=== PATIENT | male | born 1935 | race Caucasian/White ===

== ENCOUNTER 2016-09-23 16:16 | Inpatient (IN) | payer MEDICARE, OTHER ==
[~2016-09-23] VITALS: Ht 170.2 cm; Wt 82.2 kg
[~2016-09-23 16:16] MED LIST: ALPH0.1S EACH EYE; AMLO5TAB2 PO; ASPI-110 PO; CARV12.52 PO; CILO50TA PO; HUMALOG SQ; HYDR25TA35 PO; ISOS60TA PO; LANTINJ SQ; LISI10TA3 PO; SERT-129 PO; TRAV0.00 EACH EYE; VYTO10TA9 PO
[2016-09-23 16:20] VITALS: BP 100/53; PULSE 71; RESP 18; TEMP 97.8; O2SAT 97
[2016-09-23] MEDS ORDERED: CHOL20005 PO (16:38)
[2016-09-23] MEDS ORDERED: FERR325T PO (16:38)
[2016-09-23] MEDS ORDERED: SODIUM CHLOR 0.9% 1000 ML INJ 1,000 ML IV SCH (16:44)
[2016-09-23] MEDS ORDERED: MORPHINE SULFATE 4 MG/ML INJ IV PUSH ONE (16:45)
[2016-09-23] MEDS ORDERED: SODIUM CHLORIDE 0.9% FLUSH 10 ML FLUSH IV FLUSH PRN ×2 (16:45→18:45)
[2016-09-23] MEDS ORDERED: ONDANSETRON HCL 4 MG/2 ML VIAL IVP ONE (16:45)
[2016-09-23 16:53] VITALS: O2SAT 97
--- NOTE | 2016-09-23 16:53 | PD ---
HPI Chief Complaint: Abdominal Pain Time Seen by Provider: 16:25 Travel History International Travel<30 days: No Contact w/Intl Traveler<30days: No Traveled to known affect area: No History of Present Illness HPI The patient is a 80-year-old male who presents emergency department from his physician's office, Dr. Salas, for evaluation of abdominal pain. The patient notes a one-week history of intermittent right upper quadrant abdominal pain that is worse with eating, the patient states when he eats he feels like he has to bend over to alleviate the pain. The pain is located in the right upper quadrant and radiates to the back. He does complain of mild nausea with a few episodes of vomiting. He denies any lower abdominal pain, has a history of previous appendectomy. The patient also has a history of diverticulitis with different symptoms. The patient denies any history of pancreatitis, nephrolithiasis, or current dysuria, frequency, or urgency. He denies any associated fever. The patient's last meal was at 2:45 PM, one half of a sandwich. PFSH Past Medical History Hx Anticoagulant Therapy: Yes Anemia: Yes Arthritis: Yes Asthma: No Autoimmune Disease: No Blood Disorders: No Anxiety: No Depression: No Cancer: No Cardiac Catheterization: Yes Cardiovascular Problems: Yes High Cholesterol: Yes Chest Pain: Yes Congestive Heart Failure: No COPD: No Cerebrovascular Accident: No Coronary Artery Disease: Yes Diabetes: Yes Patient Takes Glucophage: No Diminished Hearing: Yes (SLIGHT HEARING DEFICIT) Endocrine: Yes Gastrointestinal Disorders: No GERD: No Glaucoma: No Genitourinary: Yes Hepatitis: No Hiatal Hernia: No Hypertension: Yes Immune Disorder: No Kidney Stones: Yes Musculoskeletal: Yes Neurologic: No Psychiatric: No Reproductive: No Respiratory: No Myocardial Infarction: No Renal Failure: Yes Sleep Apnea: No Thyroid Disease: No Ulcer: No Tetanus Vaccination: > 5 Years Influenza Vaccination: Yes PNEUMOCCOCAL Vaccine (Year): 1 Past Surgical History Abdominal Surgery: Yes (BURST APPENDIX 1982) Appendectomy: Yes Cardiac Surgery: Yes (HEART CATH 2007) Cholecystectomy: No Eye Surgery: Yes (CATARACTS AJAY EYES LENS IMPLANTS) Joint Replacement: Yes (TOTAL LT KNEE 2003) Oral Surgery: Yes (JAW SURGERY WITH IMPLANT) Thoracic Surgery: No Tonsillectomy: Yes Other Surgery: Yes (APPENDECTOMY, EYE SURGERY, JAW W/ IMPLANT,TONSILECTOMY, L KNEE REPLACEMENT.) Social History Alcohol Use: No Tobacco Use: No Substance Use: No Allergies-Medications (Allergen,Severity, Reaction): Coded Allergies: Cipro (Verified Allergy, Unknown, 09/23/16) Reported Meds & Prescriptions Reported Meds & Active Scripts Active Reported D3 Super Strength (Cholecalciferol) 2,000 Unit Cap 2,000 Units PO DAILY Ferrous Sulfate 325 Mg Tab 325 Mg PO DAILY Humalog Inj (Insulin Human Lispro) 1,000 Unit/10 Ml Vial SQ PER SLIDING SCALE Lantus Solostar Pen Inj (Insulin Glargine) 300 Unit/3 Ml Pen 50 Units SQ HS Travatan Z Opth Drops (Travoprost) 0.004 % Soln 1 Drop EACH EYE BID Alphagan P Opth Drops (Brimonidine Tartrate) 0.1% Soln 1 Drop EACH EYE BID Amlodipine (Amlodipine Besylate) 5 Mg Tab 5 Mg PO DAILY MEDICATION CURRENTLY ON HOLD Sertraline (Sertraline HCl) 100 Mg Tab 100 Mg PO DAILY Cilostazol 50 Mg Tab 50 Mg PO BID Hydralazine (Hydralazine HCl) 25 Mg Tab 25 Mg PO BID Take with a meal Isosorbide Mononitrate ER (Isosorbide Mononitrate) 60 Mg Tab 60 Mg PO DAILY Carvedilol 12.5 Mg Tab 12.5 Mg PO BID Vytorin (Ezetimibe-Simvastatin) 10-40 Mg Tab 1 Tab PO HS Lisinopril 10 Mg Tab 10 Mg PO DAILY Review of Systems Except as stated in HPI: all other systems reviewed are Neg General / Constitutional: No: Fever Cardiovascular: No: Chest Pain or Discomfort Respiratory: No: Shortness of Breath Gastrointestinal: Positive: Nausea, Vomiting, Abdominal Pain, Other (last bowel movement, normal, today), No: Diarrhea, Constipation, Changes in Bowel Habits Genitourinary: No: Dysuria, Hematuria Skin: No Rash Physical Exam Narrative GENERAL: Awake, alert, pleasant 80-year-old male who appears his stated age and is in no acute respiratory distress. SKIN: Focused skin assessment warm/dry. HEAD: Atraumatic. Normocephalic. EYES: No injection or drainage. ENT: No nasal bleeding or discharge. Mucous membranes pink and moist. NECK: Trachea midline. No JVD. CARDIOVASCULAR: Regular rate and rhythm. No murmur appreciated. RESPIRATORY: No accessory muscle use. Clear to auscultation. Breath sounds equal bilaterally. GASTROINTESTINAL: Abdomen soft, tender palpation right upper quadrant. Well- healed scar just lateral, to the right, of the midline in the right lower abdomen. No rebound tenderness, guarding, or rigidity. MUSCULOSKELETAL: No obvious deformities. No clubbing. No cyanosis. No edema. NEUROLOGICAL: Awake and alert. No obvious cranial nerve deficits. Motor grossly within normal limits. Normal speech. PSYCHIATRIC: Appropriate mood and affect; insight and judgment normal. Data Data Last Documented VS Vital Signs Date Time Temp Pulse Resp B/P Pulse Ox O2 Delivery O2 Flow Rate FiO2 09/23/16 16:53 97 Room Air 09/23/16 16:20 97.8 71 18 100/53 Orders Complete Blood Count With Diff (09/23/16 16:44) Comprehensive Metabolic Panel (09/23/16 16:44) Lipase (09/23/16 16:44) Us Abdomen Gallbladder (09/23/16 ) Iv Access Insert/Monitor (09/23/16 16:44) Ecg Monitoring (09/23/16 16:44) Oximetry (09/23/16 16:44) Morphine Inj (Morphine Inj) (09/23/16 16:45) Ondansetron Inj (Zofran Inj) (09/23/16 16:45) Sodium Chlor 0.9% 1000 Ml Inj (Ns 1000 M (09/23/16 16:44) Sodium Chloride 0.9% Flush (Ns Flush) (09/23/16 16:45) Potassium, Serum (K) (09/23/16 17:23) Electrocardiogram (09/23/16 ) Sodium Chlor 0.9% 1000 Ml Inj (Ns 1000 M (09/23/16 17:45) Potassium, Serum (K) (09/23/16 21:09) Insulin Human Regular Inj (Novolin R Inj (09/23/16 18:15) Dextrose 50% In Twin (Vial) Inj (D50w (Vi (09/23/16 18:15) Sodium Bicarbonate 8.4% Inj (Sodium Bica (09/23/16 18:15) Sodium Polysty Sulfate Liq (Kayexalate L (09/23/16 18:15) Admit Order (Ed Use Only) (09/23/16 18:23) Labs Laboratory Tests Test 09/23/16 09/23/16 16:50 17:30 White Blood Count 11.9 TH/MM3 Red Blood Count 3.55 MIL/MM3 Hemoglobin 9.9 GM/DL Hematocrit 29.6 % Mean Corpuscular Volume 83.3 FL Mean Corpuscular Hemoglobin 28.0 PG Mean Corpuscular Hemoglobin 33.5 % Concent Red Cell Distribution Width 14.1 % Platelet Count 86 TH/MM3 Mean Platelet Volume 9.7 FL Neutrophils (%) (Auto) 56.2 % Lymphocytes (%) (Auto) 30.1 % Monocytes (%) (Auto) 11.1 % Eosinophils (%) (Auto) 2.3 % Basophils (%) (Auto) 0.3 % Neutrophils # (Auto) 6.7 TH/MM3 Lymphocytes # (Auto) 3.6 TH/MM3 Monocytes # (Auto) 1.3 TH/MM3 Eosinophils # (Auto) 0.3 TH/MM3 Basophils # (Auto) 0.0 TH/MM3 CBC Comment AUTO DIFF Differential Comment AUTO DIFF CONFIRMED Sodium Level 135 MEQ/L Potassium Level 6.5 MEQ/L 6.7 MEQ/L Chloride Level 103 MEQ/L Carbon Dioxide Level 26.8 MEQ/L Anion Gap 5 MEQ/L Blood Urea Nitrogen 55 MG/DL Creatinine 2.80 MG/DL Estimat Glomerular Filtration 22 ML/MIN Rate Random Glucose 143 MG/DL Calcium Level 8.6 MG/DL Total Bilirubin 0.3 MG/DL Aspartate Amino Transf 19 U/L (AST/SGOT) Alanine Aminotransferase 30 U/L (ALT/SGPT) Alkaline Phosphatase 58 U/L Total Protein 6.7 GM/DL Albumin 3.4 GM/DL Lipase 89 U/L [facility] Medical Decision Making Medical Screen Exam Complete: Yes Emergency Medical Condition: Yes Medical Record Reviewed: Yes Interpretation(s) EKG reveals sinus bradycardia with borderline first-degree AV block. Laboratory Tests Test 09/23/16 09/23/16 16:50 17:30 White Blood Count 11.9 TH/MM3 Red Blood Count 3.55 MIL/MM3 Hemoglobin 9.9 GM/DL Hematocrit 29.6 % Mean Corpuscular Volume 83.3 FL Mean Corpuscular Hemoglobin 28.0 PG Mean Corpuscular Hemoglobin 33.5 % Concent Red Cell Distribution Width 14.1 % Platelet Count 86 TH/MM3 Mean Platelet Volume 9.7 FL Neutrophils (%) (Auto) 56.2 % Lymphocytes (%) (Auto) 30.1 % Monocytes (%) (Auto) 11.1 % Eosinophils (%) (Auto) 2.3 % Basophils (%) (Auto) 0.3 % Neutrophils # (Auto) 6.7 TH/MM3 Lymphocytes # (Auto) 3.6 TH/MM3 Monocytes # (Auto) 1.3 TH/MM3 Eosinophils # (Auto) 0.3 TH/MM3 Basophils # (Auto) 0.0 TH/MM3 CBC Comment AUTO DIFF Differential Comment AUTO DIFF CONFIRMED Sodium Level 135 MEQ/L Potassium Level 6.5 MEQ/L 6.7 MEQ/L Chloride Level 103 MEQ/L Carbon Dioxide Level 26.8 MEQ/L Anion Gap 5 MEQ/L Blood Urea Nitrogen 55 MG/DL Creatinine 2.80 MG/DL Estimat Glomerular Filtration 22 ML/MIN Rate Random Glucose 143 MG/DL Calcium Level 8.6 MG/DL Total Bilirubin 0.3 MG/DL Aspartate Amino Transf 19 U/L (AST/SGOT) Alanine Aminotransferase 30 U/L (ALT/SGPT) Alkaline Phosphatase 58 U/L Total Protein 6.7 GM/DL Albumin 3.4 GM/DL Lipase 89 U/L Ultrasound the gallbladder reveals echogenic liver compatible with fatty infiltration or hepatocellular disease. No evidence of cholelithiasis. Differential Diagnosis Differential diagnosis includes cholecystitis, choledocholithiasis, biliary colic, pancreatitis, nephrolithiasis, pyelonephritis, colitis, diverticulitis, lower lobe pneumonia. Narrative Course IV was established, labs are drawn and sent, and the patient was placed on cardiac telemetry monitoring and continuous pulse oximetry monitoring. The patient was administered morphine, Zofran, and IV fluids. Ultrasound of the right upper quadrant was ordered to evaluate for possible cholecystitis. The patient's white count was mildly elevated, hemoglobin was mildly low at 9.9. Creatinine was elevated at 2.8, I reviewed the EMR, is baseline appears to be 2.4. The patient's potassium was 6.5, no mention of hemolysis. Therefore, repeat potassium level was sent to lab and the patient was administered 1 L of normal saline. EKG was also ordered, no obvious PT waves or dissociation. Repeat potassium was 6.7. No mention of hemolysis. Therefore, the patient was administered insulin, D50, bicarbonate, and Kayexalate. The patient does have a previous history of hyperkalemia, is followed by his web developer programmer, Dr. Johsnon. The patient has an appointment next month. The patient also takes lisinopril for renal protective properties, may be contributing with the nausea/ vomiting/dehydration to the hyperkalemia. Therefore, patient will be admitted for cardiac telemetry monitoring and reevaluation of the potassium in the morning. Physician Communication Physician Communication The medical group/hospitalist that covers for his primary physician was paged for admission. Diagnosis Primary Impression: Hyperkalemia Additional Impressions: Chronic renal insufficiency Qualified Code: N18.4 - Chronic renal insufficiency, stage 4 (severe) Abdominal pain Qualified Code: R10.11 - Right upper quadrant abdominal pain Admitting Information Admitting Physician Requests: Admit Condition: Stable Zack Troncoso MD September 23, 2016 16:53
[2016-09-23 16:57] LABS: AUTOMATED NEUTROPHIL # 6.7 TH/MM3 (1.8-7.7); BASOPHIL % 0.3 % (0.0-2.0); EOSINOPHIL # 0.3 TH/MM3 (0-0.4); EOSINOPHIL % 2.3 % (0.0-4.0); HEMATOCRIT 29.6 % (39.0-51.0); LYMPH % 30.1 % (9.0-44.0); LYMPHOCYTE # 3.6 TH/MM3 (1.0-4.8); MEAN CELL VOLUME 83.3 FL (80.0-100.0); MEAN CORPUSCULAR HGB CONC 33.5 % (32.0-36.0); MONO % 11.1 % (0.0-8.0); NEUT % 56.2 % (16.0-70.0); PLATELET COUNT 86 TH/MM3 (150-450); RED BLOOD COUNT 3.55 MIL/MM3 (4.50-5.90); RED CELL DISTRIBUTION WIDTH 14.1 % (11.6-17.2); WHITE BLOOD COUNT 11.9 TH/MM3 (4.0-11.0)
[2016-09-23 16:59] LABS: HEMO FLAGS AUTO DIFF
[2016-09-23 17:22] LABS: CHLORIDE 103 MEQ/L (98-107); POTASSIUM 6.5 MEQ/L (3.5-5.1); SODIUM (NA) 135 MEQ/L (136-145)
[2016-09-23 17:26] LABS: ANION GAP 5 MEQ/L (5-15); BICARBONATE 26.8 MEQ/L (21.0-32.0); BLOOD UREA NITROGEN 55 MG/DL (7-18)
[2016-09-23 17:29] LABS: ALT (GPT) 30 U/L (12-78); AST (GOT) 19 U/L (15-37); GLOMERULAR FILTRATION RATE 22 ML/MIN (>89); SCAN/DIFF AUTO DIFF CONFIRMED
[2016-09-23 17:30] LABS: TOTAL BILIRUBIN ADULT 0.3 MG/DL (0.2-1.0)
[2016-09-23 17:31] LABS: ALKALINE PHOSPHATASE 58 U/L (45-117)
[2016-09-23] MEDS ORDERED: SODIUM CHLOR 0.9% 1000 ML INJ 1,000 ML IV ONE (17:45)
[2016-09-23] MEDS ORDERED: DEXTROSE 50% IN WATER 50 ML VIAL(D50) IV PUSH ONE (18:15)
[2016-09-23] MEDS ORDERED: SODIUM BICARBONATE 8.4% SOLN 50 MEQ/50 ML VIAL SLOW IVP ONE (18:15)
[2016-09-23] MEDS ORDERED: INSULIN HUMAN REGULAR 1,000 UNITS/10 ML VIAL IV PUSH ONE (18:15)
[2016-09-23] MEDS ORDERED: SODIUM POLYSTYRENE SULFONATE SUSP 15 GM/60 ML CUP PO ONE (18:15)
--- NOTE | 2016-09-23 18:23 | RADHPO ---
EXAM DATE/TIME: 09/23/2016 17:41 [facility] COMPARISON: No previous studies available for comparison. INDICATIONS : Right upper quadrant pain. MEDICAL HISTORY : Hypercholesterolemia. Hypertension. Arthritis. CAD. Chest pain. Renal disease a nd failure. Renal calculi. Diabetes. Anemia. Erecticle dysfunction. Dizziness. Numbness. Ringing in l eft ear. Anticoagulant therapy. SURGICAL HISTORY : Tonsillectomy. Appendectomy. Total knee replacement, left. Bilateral cataracts with lens implants. Jaw surgery with implant. Cardiac cath. ENCOUNTER: Initial ACUITY: 4-6 days PAIN SCORE: 5/10 LOCATION: Right upper quadrant MEASUREMENTS: LIVER: 14.6 cm length COMMON DUCT: 4 mm RIGHT KIDNEY: 8.3 x 5.3 x 5.9 cm FINDINGS: Ultrasound of the upper abdomen demonstrates increased echogenicity of the liver compatible with fatt y infiltration or hepatocellular disease. The pancreas is not visualized secondary to overlying bowel gas. The gallbladder is normal without wall thickening or pericholecystic fluid. There is cortical t hinning of the right kidney characteristic of medical renal disease. CONCLUSION: Echogenic liver compatible with fatty infiltration or hepatocellular disease. No evidence of cholelit hiasis Tyler Bynum MD on September 23, 2016 at 18:19 Board Certified Radiologist. This report was verified electronically.
[2016-09-23] MEDS ORDERED: ACETAMINOPHEN 325 MG TAB PO PRN (18:45)
[2016-09-23] MEDS ORDERED: NALOXONE HCL 0.4 MG/ML AMP IV PRN (18:45)
[2016-09-23] MEDS ORDERED: ONDANSETRON HCL 4 MG/2 ML VIAL IVP PRN (18:45)
[2016-09-23 19:15] VITALS: BP 127/56; PULSE 58; RESP 20; O2SAT 98
[2016-09-23] MEDS ORDERED: DIATRIZOATE MEGLUM/DIATRIZOATE SOD 9 ML CUP ONE (19:18)
[2016-09-23] MEDS ORDERED: DIATRIZOATE MEGLUM/DIATRIZOATE SOD 9 ML CUP PO ONE (19:30)
[2016-09-23] MEDS ORDERED: CILOSTAZOL 50 MG TAB PO SCH (21:00)
[2016-09-23] MEDS ORDERED: NON-FORMULARY DRUG (Ezetimibe-Simvastatin (Vytorin) 1 TAB) PO SCH (21:00)
[2016-09-23] MEDS: SODIUM CHLORIDE 0.9% FLUSH 10 ML FLUSH IV FLUSH SCH (21:00)
[2016-09-23 21:26] VITALS: BP 142/74
[2016-09-23 21:29] VITALS: PULSE 65
--- NOTE | 2016-09-23 21:55 | RADHPO ---
EXAM DATE/TIME: 09/23/2016 20:47 [facility] COMPARISON: No previous studies available for comparison. INDICATIONS : Abdominal pain. ORAL CONTRAST: Prescribed oral contrast ingested. RADIATION DOSE: 19.43 CTDIvol (mGy) MEDICAL HISTORY : Hypertension. Renal calculi. Renal failure, chronic.L1 fracture. SURGICAL HISTORY : Appendectomy. ENCOUNTER: Initial ACUITY: 1 day PAIN SCALE: 8/10 LOCATION: Right upper quadrant abdomen TECHNIQUE: Volumetric scanning of the abdomen and pelvis was performed. Using automated exposure control and ad justment of the mA and/or kV according to patient size, radiation dose was kept as low as reasonably achievable to obtain optimal diagnostic quality images. FINDINGS: There is subsegmental atelectasis in the both bases. The liver and spleen are normal in size and no focal defects are identified. There are multiple stones within the gallbladder without wall thickenin g or pericholecystic fluid the largest measuring 4 mm. The pancreas demonstrates no evidence of mass and there is no dilatation of the pancreatic duct. The adrenal glands and kidneys appear normal bilat erally. No hydronephrosis or mass lesions are identified. A shunt catheter enters the right upper christelle drant. Examination of the pelvis demonstrates no evidence of free fluid or pelvic mass. No abnormally enlarg ed inguinal or retroperitoneal lymph nodes are present. The bladder is unremarkable with the exceptio n of a small diverticulum measuring 1 cm on the left. There is diverticulosis without evidence of div erticulitis. CONCLUSION: 1. No evidence of acute abdominal or pelvic process. No masses are identified. 2. Diverticulosis without evidence of diverticulitis. 3. Cholelithiasis Tyler Bynum MD on September 23, 2016 at 21:50 Board Certified Radiologist. This report was verified electronically.
[2016-09-23 22:00] VITALS: BP 145/61; PULSE 64; RESP 16; TEMP 97.5; O2SAT 96
[2016-09-23] MEDS ORDERED: PILL SPLITTER OTHER PRN (22:00)
[2016-09-23 22:03] LABS: BICARBONATE 28.8 MEQ/L (21.0-32.0); POTASSIUM 4.7 MEQ/L (3.5-5.1)
[2016-09-23] MEDS: LATANOPROST 0.005% OPHT SOLN 2.5 ML BTL EACH EYE SCH (22:27)
[2016-09-23] MEDS: BRIMONIDINE TARTRATE 0.15% OPHT SOLN 5 ML BTL EACH EYE SCH (22:27)
[2016-09-23] MEDS: hydrALAZINE HCL 25 MG TAB PO SCH (22:28)
[2016-09-23] MEDS: PRAVASTATIN SOD 80 MG TAB PO SCH (22:28)
[2016-09-23] MEDS: CARVEDILOL 12.5 MG TAB PO SCH (22:28)
[2016-09-23] MEDS: EZETIMIBE 10 MG TAB PO SCH (22:28)
[2016-09-23] MEDS: CILOSTAZOL 100 MG TAB PO SCH (22:31)
[2016-09-24] VITALS: BP 121/70; PULSE 67; RESP 16; TEMP 96.3; O2SAT 91
[2016-09-24] MEDS: TEMAZEPAM 15 MG CAP PO PRN ×2 (02:27→22:24)
[2016-09-24 04:00] VITALS: BP 114/55; PULSE 61; RESP 16; TEMP 96.9; O2SAT 90
[2016-09-24 07:37] LABS: AUTOMATED NEUTROPHIL # 5.2 TH/MM3 (1.8-7.7); BASOPHIL % 0.3 % (0.0-2.0); EOSINOPHIL # 0.2 TH/MM3 (0-0.4); EOSINOPHIL % 2.1 % (0.0-4.0); HEMATOCRIT 26.5 % (39.0-51.0); LYMPH % 29.9 % (9.0-44.0); LYMPHOCYTE # 2.8 TH/MM3 (1.0-4.8); MEAN CELL VOLUME 84.4 FL (80.0-100.0); MEAN CORPUSCULAR HEMOGLOBIN 27.6 PG (27.0-34.0); MEAN CORPUSCULAR HGB CONC 32.7 % (32.0-36.0); NEUT % 53.7 % (16.0-70.0); PLATELET COUNT 69 TH/MM3 (150-450); RED BLOOD COUNT 3.14 MIL/MM3 (4.50-5.90); WHITE BLOOD COUNT 9.4 TH/MM3 (4.0-11.0)
[2016-09-24 07:39] LABS: HEMO FLAGS AUTO DIFF; POTASSIUM 4.9 MEQ/L (3.5-5.1)
--- NOTE | 2016-09-24 07:47 | HHI.HP ---
HPI Service [facility] Primary Care Physician Sailaja Salas MD Admission Diagnosis hyperkalemia, chronic kidney insufficiency, right upper quadrant rian Diagnoses: Chief Complaint: right upper abdominal pain Travel History International Travel<30 Days: No Contact w/Intl Traveler <30 Da: No Traveled to Known Affected Are: No History of Present Illness 80-year-old male with PMH of Hypertension, diabetes, hyperlipidemia anemia, GERD, peripheral vascular disease, arthritis , hearing deficits, kidney stones who presents to emergency department from his physician's office, Dr. Salas, for evaluation of abdominal pain. The patient notes a one-week history of intermittent right upper quadrant abdominal pain that is worse with eating, the patient states when he eats he feels like he has to bend over to alleviate the pain. The pain is located in the right upper quadrant and radiates to the back. He does complain of mild nausea with a few episodes of vomiting. He denies any lower abdominal pain, has a history of previous appendectomy. The patient also has a history of diverticulitis with different symptoms. The patient denies any history of pancreatitis, nephrolithiasis, or current dysuria, frequency, or urgency. He denies any associated fever. The patient's last meal was at 2:45 PM, one half of a sandwich. The patient is found with hyperkalemia, received kayexalate. He says he had a large BM. Says his abdominal pain subsided, and he feels much better. He will try to eat today. Says he would like to go home later today if he tolerated food and if he continues to improve. He denies any fever or chills. No other complaints. Review of Systems Except as stated in HPI: all other systems reviewed are Neg Past Family Social History Past Medical History Hypertension, diabetes, hyperlipidemia anemia, GERD, peripheral vascular disease , arthritis, hearing deficits, kidney stones Past Surgical History Appendectomy 1982 Heart catheterization 2007 Cataract Surgery bilateral eyes Total left knee arthroplasty Jaw surgery with implant Slept Reported Medications Reported Meds & Active Scripts Active Reported D3 Super Strength (Cholecalciferol) 2,000 Unit Cap 2,000 Units PO DAILY Ferrous Sulfate 325 Mg Tab 325 Mg PO DAILY Humalog Inj (Insulin Human Lispro) 1,000 Unit/10 Ml Vial SQ PER SLIDING SCALE Lantus Solostar Pen Inj (Insulin Glargine) 300 Unit/3 Ml Pen 50 Units SQ HS Travatan Z Opth Drops (Travoprost) 0.004 % Soln 1 Drop EACH EYE BID Alphagan P Opth Drops (Brimonidine Tartrate) 0.1% Soln 1 Drop EACH EYE BID Amlodipine (Amlodipine Besylate) 5 Mg Tab 5 Mg PO DAILY MEDICATION CURRENTLY ON HOLD Sertraline (Sertraline HCl) 100 Mg Tab 100 Mg PO DAILY Cilostazol 50 Mg Tab 50 Mg PO BID Hydralazine (Hydralazine HCl) 25 Mg Tab 25 Mg PO BID Take with a meal Isosorbide Mononitrate ER (Isosorbide Mononitrate) 60 Mg Tab 60 Mg PO DAILY Carvedilol 12.5 Mg Tab 12.5 Mg PO BID Vytorin (Ezetimibe-Simvastatin) 10-40 Mg Tab 1 Tab PO HS Lisinopril 10 Mg Tab 10 Mg PO DAILY Allergies: Coded Allergies: Cipro (Verified Allergy, Unknown, 09/23/16) Family History Mother heart problems His father had drinking problems and because complications Brother diabetes mellitus Social History Denies alcohol use, tobacco or illicit drug use Physical Exam Vital Signs Vital Signs Date Time Temp Pulse Resp B/P Pulse Ox O2 Delivery O2 Flow Rate FiO2 09/24/16 04:00 96.9 61 16 114/55 90 09/24/16 00:00 96.3 67 16 121/70 91 09/23/16 22:00 97.5 64 16 145/61 96 09/23/16 21:29 65 09/23/16 21:26 69 20 142/74 98 09/23/16 20:13 20 09/23/16 19:15 58 20 127/56 98 09/23/16 16:53 97 Room Air 09/23/16 16:20 97.8 71 18 100/53 97 Physical Exam GENERAL: This is a pleasant 80 yo male, well-nourished, well-developed patient, in no apparent distress. SKIN: No rashes, ecchymoses or lesions. Cool and dry. HEAD: Atraumatic. Normocephalic. No temporal or scalp tenderness. EYES: Pupils equal round and reactive. Extraocular motions intact. No scleral icterus. No injection or drainage. ENT: Nose without bleeding, purulent drainage or septal hematoma. Throat without erythema, tonsillar hypertrophy or exudate. Uvula midline. Airway patent. NECK: Trachea midline. No JVD or lymphadenopathy. Supple, nontender, no meningeal signs. CARDIOVASCULAR: Regular rate and rhythm without murmurs, gallops, or rubs. RESPIRATORY: Clear to auscultation. Breath sounds equal bilaterally. No wheezes , rales, or rhonchi. GASTROINTESTINAL: Abdomen soft, non-tender, nondistended. No hepato-splenomegaly , or palpable masses. No guarding. MUSCULOSKELETAL: Extremities without clubbing, cyanosis, or edema. No joint tenderness, effusion, or edema noted. No calf tenderness. Negative Homans sign bilaterally. NEUROLOGICAL: Awake and alert. Cranial nerves II through XII intact. Motor and sensory grossly within normal limits. Five out of 5 muscle strength in all muscle groups. Normal speech. Laboratory Laboratory Tests Test 09/23/16 09/23/16 09/23/16 09/24/16 16:50 17:30 21:15 06:48 White Blood Count 11.9 9.4 Red Blood Count 3.55 3.14 Hemoglobin 9.9 8.6 Hematocrit 29.6 26.5 Mean Corpuscular Volume 83.3 84.4 Mean Corpuscular Hemoglobin 28.0 27.6 Mean Corpuscular Hemoglobin 33.5 32.7 Concent Red Cell Distribution Width 14.1 14.0 Platelet Count 86 69 Mean Platelet Volume 9.7 10.1 Neutrophils (%) (Auto) 56.2 53.7 Lymphocytes (%) (Auto) 30.1 29.9 Monocytes (%) (Auto) 11.1 14.0 Eosinophils (%) (Auto) 2.3 2.1 Basophils (%) (Auto) 0.3 0.3 Neutrophils # (Auto) 6.7 5.2 Lymphocytes # (Auto) 3.6 2.8 Monocytes # (Auto) 1.3 1.3 Eosinophils # (Auto) 0.3 0.2 Basophils # (Auto) 0.0 0.0 CBC Comment AUTO DIFF AUTO DIFF Differential Comment AUTO DIFF CONFIRMED Sodium Level 135 136 139 Potassium Level 6.5 6.7 4.7 4.9 Chloride Level 103 102 107 Carbon Dioxide Level 26.8 28.8 Anion Gap 5 5 Blood Urea Nitrogen 55 49 Creatinine 2.80 2.50 Estimat Glomerular Filtration 22 25 Rate Random Glucose 143 67 Calcium Level 8.6 8.0 Total Bilirubin 0.3 Aspartate Amino Transf 19 (AST/SGOT) Alanine Aminotransferase 30 (ALT/SGPT) Alkaline Phosphatase 58 Total Protein 6.7 Albumin 3.4 Lipase 89 Result Diagram: 09/24/16 0648 09/24/16 0648 Imaging Last Impressions Gall Bladder Ultrasound 09/23/16 0000 Signed Impressions: Service Date/Time: Friday, September 23, 2016 17:41 - CONCLUSION: Echogenic liver compatible with fatty infiltration or hepatocellular disease. No evidence of cholelithiasis Tyler Bynum MD Abdomen/Pelvis CT 09/23/16 0000 Signed Impressions: Service Date/Time: Friday, September 23, 2016 20:47 - CONCLUSION: 1. No evidence of acute abdominal or pelvic process. No masses are identified. 2. Diverticulosis without evidence of diverticulitis. 3. Cholelithiasis Tyler Bynum MD Assessment and Plan Assessment and Plan 80 yo male with abdominal pain Nausea likely 2/2 Hyperkalemia. K of 6.7 on admission. Received Kayexalate. K level trending down. Monitor H/o CKD, kidney indices at baseline CT abd pelvis 1. No evidence of acute abdominal or pelvic process. No masses are identified. 2. Diverticulosis without evidence of diverticulitis. 3. Cholelithiasis On IVF Hypertension Restart home meds. Monitor BP Diabetes mellitus. ISS, accuchecks. Monitor BS Hyperlipidemia continue statin Anemia poss at CKD Thrombocytopenia. No signs of bleeding . Monitor GERD PPI DVT ppx : SCD/TEDs Discussed Condition With patient, nurse Physician Certification 2 Midnight Certification Type: Admission for Inpatient Services Order for Inpatient Services The services are ordered in accordance with Medicare regulations or non- Medicare payer requirements, as applicable. In the case of services not specified as inpatient-only, they are appropriately provided as inpatient services in accordance with the 2-midnight benchmark. Estimated LOS (days): 3 days is the estimated time the patient will need to remain in the hospital, assuming treatment plan goals are met and no additional complications. Post-Hospital Plan: Home Lelo Watson MD September 24, 2016 07:47
[2016-09-24 08:00] VITALS: BP 142/68; PULSE 64; RESP 16; TEMP 97.6; O2SAT 92
[2016-09-24] MEDS: SODIUM CHLORIDE 0.9% FLUSH 10 ML FLUSH IV FLUSH SCH ×2 (09:00→20:56)
[2016-09-24 09:53] LABS: PLATELET ESTIMATE SMEAR LOW (NORMAL); PLATELET MORPHOLOGY NORMAL (NORMAL); SCAN/DIFF AUTO DIFF CONFIRMED
[2016-09-24] MEDS: BRIMONIDINE TARTRATE 0.15% OPHT SOLN 5 ML BTL EACH EYE SCH ×2 (10:18→20:55)
[2016-09-24] MEDS: LATANOPROST 0.005% OPHT SOLN 2.5 ML BTL EACH EYE SCH ×2 (10:19→20:55)
[2016-09-24] MEDS: hydrALAZINE HCL 25 MG TAB PO SCH ×2 (10:20→20:56)
[2016-09-24] MEDS: amLODIPine BESYLATE 5 MG TAB PO SCH (10:20)
[2016-09-24] MEDS: ISOSORBIDE MONONITRATE 60 MG TAB PO SCH (10:20)
[2016-09-24] MEDS: CARVEDILOL 12.5 MG TAB PO SCH ×2 (10:20→20:56)
[2016-09-24] MEDS: SERTRALINE HCL 100 MG TAB PO SCH (10:21)
[2016-09-24] MEDS: CILOSTAZOL 100 MG TAB PO SCH ×2 (10:21→20:55)
[2016-09-24] MEDS: CHOLECALCIFEROL (VIT D3) 1000 UNIT TAB PO SCH (10:21)
[2016-09-24 12:00] VITALS: BP 99/55; PULSE 64; RESP 16; TEMP 98; O2SAT 94
[2016-09-24] MEDS: SODIUM CHLOR 0.9% 1000 ML INJ 1,000 ML IV SCH ×2 (12:00→20:56)
--- NOTE | 2016-09-24 13:38 | EKG ---
Date Performed: 09/23/2016 Time Performed: 17:51:48 PTAGE: 80 years EKG: Sinus bradycardia with borderline 1st degree A-V block Compared to prior tracing no signifi cant change Borderline ECG PREVIOUS TRACING : 03/22/2016 13.43 DOCTOR: Cal Armenta Interpretating Date/Time 09/24/2016 13:37:17
--- NOTE | 2016-09-24 14:04 | PD.CONS ---
[facility] Service Nephrology Consult Requested By Reason for Consult Acute on CKD 4 Primary Care Physician Sailaja Salas MD History of Present Illness This is an 80 y/o male patient who was admitted for RUQ abdominal pain. Extensive PMH listed below and includes HTN, DM 2, PVD, arthritis, hyperlipidemia. He also has CKD 4, was seen in our clinic in May. At that time his creatinine measured 2.32, GFR 25 that had been stable for some time. On arrival his creatinine measured 2.8, which improved to 2.5. He was found to be hyperkalemic at 6.7, treated with IV insulin (10 units), dextrose, bicarbonate, and 15 g Kayexalate. His K today normalized to 4.9. His admits to given him OJ and gatorade in fear of hypoglycemia. In addition he was not eating for several days. He has received IVF and antiemetics in addition to pain medications. CT showed diverticulosis and cholelithiasis. Gallbladder US showed fatty liver disease. We were consulted for renal management. He and his have inquired if he can be discharged today. (Nahed Crawford) Review of Systems Gastrointestinal: COMPLAINS OF: Abdominal pain, Nausea, Vomiting (Nahed Crawford) Past Family Social History Allergies: Coded Allergies: Cipro (Verified Allergy, Unknown, 09/23/16) Past Medical History CKD 4, GFR 25, creatinine 2.3 from May 2016 Hypertension DM 2 hyperlipidemia anemia GERD, PVD arthritis, hard of hearing hx of kidney stones Past Surgical History Appendectomy 1982 Heart catheterization 2008 Cataract Surgery bilateral eyes Total left knee arthroplasty Jaw surgery with implant Reported Medications D3 Super Strength (Cholecalciferol) 2,000 Unit Cap 2,000 Units PO DAILY Ferrous Sulfate 325 Mg Tab 325 Mg PO DAILY Humalog Inj (Insulin Human Lispro) 1,000 Unit/10 Ml Vial SQ PER SLIDING SCALE Lantus Solostar Pen Inj (Insulin Glargine) 300 Unit/3 Ml Pen 50 Units SQ HS Travatan Z Opth Drops (Travoprost) 0.004 % Soln 1 Drop EACH EYE BID Alphagan P Opth Drops (Brimonidine Tartrate) 0.1% Soln 1 Drop EACH EYE BID Amlodipine (Amlodipine Besylate) 5 Mg Tab 5 Mg PO DAILY MEDICATION CURRENTLY ON HOLD Sertraline (Sertraline HCl) 100 Mg Tab 100 Mg PO DAILY Cilostazol 50 Mg Tab 50 Mg PO BID Hydralazine (Hydralazine HCl) 25 Mg Tab 25 Mg PO BID Take with a meal Isosorbide Mononitrate ER (Isosorbide Mononitrate) 60 Mg Tab 60 Mg PO DAILY Carvedilol 12.5 Mg Tab 12.5 Mg PO BID Vytorin (Ezetimibe-Simvastatin) 10-40 Mg Tab 1 Tab PO HS Lisinopril 10 Mg Tab 10 Mg PO DAILY Active Ordered Medications Current Medications Medications (Trade) Dose Ordered Sig/Jessica Route Start Time Stop Time Status Last Admin (NS Flush) 2 ml UNSCH PRN IV FLUSH 09/23/16 16:45 (Norvasc) 5 mg DAILY PO 09/24/16 09:00 09/24/16 10:20 (Coreg) 12.5 mg BID PO 09/23/16 21:00 09/24/16 10:20 (Vitamin D3) 2,000 units DAILY PO 09/24/16 09:00 09/24/16 10:21 (Apresoline) 25 mg BID PO 09/23/16 21:00 09/24/16 10:20 (Imdur) 60 mg DAILY PO 09/24/16 09:00 09/24/16 10:20 (Zoloft) 100 mg DAILY PO 09/24/16 09:00 09/24/16 10:21 (Alphagan P 0.15% Opth Soln) 1 drop BID EACH EYE 09/23/16 21:00 09/24/16 10:18 (Xalatan 0.005% Opth Soln) 1 drop BID EACH EYE 09/23/16 21:00 09/24/16 10:19 (NS Flush) 2 ml UNSCH PRN IV FLUSH 09/23/16 18:45 (NS Flush) 2 ml BID IV FLUSH 09/23/16 21:00 (Tylenol) 650 mg Q4H PRN PO 09/23/16 18:45 (Zofran Inj) 4 mg Q6H PRN IVP 09/23/16 18:45 (Restoril) 15 mg HS PRN PO 09/23/16 18:45 09/24/16 02:27 (Narcan Inj) 0.4 mg UNSCH PRN IV 09/23/16 18:45 (Zetia) 10 mg HS PO 09/23/16 21:00 09/23/16 22:28 (Pravachol) 80 mg HS PO 09/23/16 21:00 09/23/16 22:28 (Pletal) 50 mg BID PO 09/23/16 22:00 09/24/16 10:21 Miscellaneous 1 ea 1 ea UNSCH PRN OTHER 09/23/16 22:00 (NS 1000 ml Inj) 1,000 ml @ 84 mls/hr [id number] IV 09/24/16 12:00 09/24/16 12:00 Family History no hx of renal impairment Social History , lives with functionally independent retired full code no smoking or ETOH (Nahed Crawford) Physical Exam Vital Signs Vital Signs Date Time Temp Pulse Resp B/P Pulse Ox O2 Delivery O2 Flow Rate FiO2 09/24/16 08:00 97.6 64 16 142/68 92 09/24/16 04:00 96.9 61 16 114/55 90 09/24/16 00:00 96.3 67 16 121/70 91 09/23/16 22:00 97.5 64 16 145/61 96 09/23/16 21:29 65 09/23/16 21:26 69 20 142/74 98 09/23/16 20:13 20 09/23/16 19:15 58 20 127/56 98 09/23/16 16:53 97 Room Air 09/23/16 16:20 97.8 71 18 100/53 97 Physical Exam Elderly caucausian male patient, awake/alert S1/s2, regular rate, no murmurs, BP stable Lungs clear Abd: soft, non tender, normal bowel sounds ext: no edema Laboratory Laboratory Tests Test 09/23/16 09/23/16 09/23/16 09/24/16 16:50 17:30 21:15 06:48 White Blood Count 11.9 9.4 Red Blood Count 3.55 3.14 Hemoglobin 9.9 8.6 Hematocrit 29.6 26.5 Mean Corpuscular Volume 83.3 84.4 Mean Corpuscular Hemoglobin 28.0 27.6 Mean Corpuscular Hemoglobin 33.5 32.7 Concent Red Cell Distribution Width 14.1 14.0 Platelet Count 86 69 Mean Platelet Volume 9.7 10.1 Neutrophils (%) (Auto) 56.2 53.7 Lymphocytes (%) (Auto) 30.1 29.9 Monocytes (%) (Auto) 11.1 14.0 Eosinophils (%) (Auto) 2.3 2.1 Basophils (%) (Auto) 0.3 0.3 Neutrophils # (Auto) 6.7 5.2 Lymphocytes # (Auto) 3.6 2.8 Monocytes # (Auto) 1.3 1.3 Eosinophils # (Auto) 0.3 0.2 Basophils # (Auto) 0.0 0.0 CBC Comment AUTO DIFF AUTO DIFF Differential Comment AUTO DIFF AUTO DIFF CONFIRMED CONFIRMED Sodium Level 135 136 139 Potassium Level 6.5 6.7 4.7 4.9 Chloride Level 103 102 107 Carbon Dioxide Level 26.8 28.8 27.0 Anion Gap 5 5 5 Blood Urea Nitrogen 55 49 48 Creatinine 2.80 2.50 2.50 Estimat Glomerular Filtration 22 25 25 Rate Random Glucose 143 67 112 Calcium Level 8.6 8.0 7.6 Total Bilirubin 0.3 Aspartate Amino Transf 19 (AST/SGOT) Alanine Aminotransferase 30 (ALT/SGPT) Alkaline Phosphatase 58 Total Protein 6.7 Albumin 3.4 Lipase 89 Platelet Estimate LOW Platelet Morphology Comment NORMAL (Nahed Crawford) Result Diagram: 09/24/16 0648 09/24/16 0648 Imaging Last 72 hours Impressions Gall Bladder Ultrasound 09/23/16 0000 Signed Impressions: Service Date/Time: Friday, September 23, 2016 17:41 - CONCLUSION: Echogenic liver compatible with fatty infiltration or hepatocellular disease. No evidence of cholelithiasis Tyler Bynum MD Abdomen/Pelvis CT 09/23/16 0000 Signed Impressions: Service Date/Time: Friday, September 23, 2016 20:47 - CONCLUSION: 1. No evidence of acute abdominal or pelvic process. No masses are identified. 2. Diverticulosis without evidence of diverticulitis. 3. Cholelithiasis Tyler Bynum MD (Nahed Crawford) Assessment and Plan Problem List: (1) Chronic renal insufficiency Plan: Acute on CKD 4, baseline GFR 25 his creatinine improved with IVF, prerenal NAS from dehydration K corrected, see below at this time taper off IVF avoid nephrotoxins renal panel tomorrow if still admitted he is requesting discharge, he is stable for discharge and we will follow up in the clinic in October (2) Hyperkalemia Plan: corrected likely due to decreased oral intake due to nausea/vomiting in a diabetic; he had lack of endogenous insulin secretion resulting in hyperkalemia in addition his was given him orange juice and Gatorade in fear of hypoglycemia not on oral replacement monitor (3) Abdominal pain Plan: work up in progress his symptoms are improved (4) Anemia Plan: Hb lower, likely dilutional check iron profile if still admitted tomorrow (Nahed Crawford) Assessment and Plan patient was seen and examined. Agree with above assessment and plan. (Bernabe Johnson MD) Problem Qualifiers (1) Chronic renal insufficiency: Qualified Code: N18.4 - Chronic renal insufficiency, stage 4 (severe) (2) Abdominal pain: Qualified Code: R10.11 - Right upper quadrant abdominal pain Nahed Crawford September 24, 2016 14:04 Bernabe Johnson MD September 24, 2016 21:37
[2016-09-24] MEDS ORDERED: NORC5TAB PO (14:06)
--- NOTE | 2016-09-24 14:07 | HHI.DCPOC ---
Discharge Care Plan Goals to Promote Your Health * To prevent worsening of your condition and complications * To maintain your health at the optimal level Directions to Meet Your Goals Take your medications as prescribed Follow your dietary instruction Follow activity as directed Keep your appointments as scheduled Take your immunizations and boosters as scheduled If your symptoms worsen call your PCP, if no PCP go to Urgent Care Center or Emergency Room Smoking is Dangerous to Your Health. Avoid second hand smoke Call the 24-hour hour crisis hotline for domestic abuse at Lelo Watson MD September 24, 2016 14:07
[2016-09-24 16:00] VITALS: BP 110/60; PULSE 68; RESP 16; TEMP 98.8; O2SAT 93
[2016-09-24 20:00] VITALS: BP 140/57; PULSE 72; PULSE 73; RESP 16; TEMP 97.3; O2SAT 93
[2016-09-24] MEDS: PRAVASTATIN SOD 80 MG TAB PO SCH (20:55)
[2016-09-24] MEDS: EZETIMIBE 10 MG TAB PO SCH (20:55)
[2016-09-25] VITALS: BP 124/73; PULSE 69; RESP 18; TEMP 97.3; O2SAT 90
[2016-09-25 04:00] VITALS: BP 150/66; PULSE 69; RESP 18; TEMP 96.9; O2SAT 91
[2016-09-25 07:29] LABS: AUTOMATED NEUTROPHIL # 4.6 TH/MM3 (1.8-7.7); BASOPHIL % 0.1 % (0.0-2.0); EOSINOPHIL # 0.2 TH/MM3 (0-0.4); EOSINOPHIL % 2.2 % (0.0-4.0); HEMATOCRIT 26.5 % (39.0-51.0); LYMPH % 27.3 % (9.0-44.0); LYMPHOCYTE # 2.3 TH/MM3 (1.0-4.8); MEAN CELL VOLUME 82.6 FL (80.0-100.0); MEAN CORPUSCULAR HEMOGLOBIN 27.4 PG (27.0-34.0); MEAN CORPUSCULAR HGB CONC 33.2 % (32.0-36.0); MONO % 15.9 % (0.0-8.0); NEUT % 54.5 % (16.0-70.0); PLATELET COUNT 75 TH/MM3 (150-450); RED BLOOD COUNT 3.21 MIL/MM3 (4.50-5.90); WHITE BLOOD COUNT 8.5 TH/MM3 (4.0-11.0)
[2016-09-25 07:34] LABS: HEMO FLAGS AUTO DIFF; POTASSIUM 4.9 MEQ/L (3.5-5.1)
[2016-09-25 07:40] LABS: BICARBONATE 26.9 MEQ/L (21.0-32.0)
[2016-09-25 08:00] VITALS: BP 110/78; PULSE 78; RESP 18; TEMP 98.1; O2SAT 97
[2016-09-25 08:14] LABS: PLATELET ESTIMATE SMEAR LOW (NORMAL); PLATELET MORPHOLOGY NORMAL (NORMAL); SCAN/DIFF AUTO DIFF CONFIRMED
[2016-09-25] MEDS: CILOSTAZOL 100 MG TAB PO SCH (08:46)
[2016-09-25] MEDS: ISOSORBIDE MONONITRATE 60 MG TAB PO SCH (08:46)
[2016-09-25] MEDS: CHOLECALCIFEROL (VIT D3) 1000 UNIT TAB PO SCH (08:47)
[2016-09-25] MEDS: SERTRALINE HCL 100 MG TAB PO SCH (08:48)
[2016-09-25] MEDS: hydrALAZINE HCL 25 MG TAB PO SCH (08:48)
[2016-09-25] MEDS: amLODIPine BESYLATE 5 MG TAB PO SCH (08:48)
[2016-09-25] MEDS: CARVEDILOL 12.5 MG TAB PO SCH (08:48)
[2016-09-25] MEDS: SODIUM CHLORIDE 0.9% FLUSH 10 ML FLUSH IV FLUSH SCH (08:49)
[2016-09-25] MEDS: BRIMONIDINE TARTRATE 0.15% OPHT SOLN 5 ML BTL EACH EYE SCH (08:49)
[2016-09-25] MEDS: LATANOPROST 0.005% OPHT SOLN 2.5 ML BTL EACH EYE SCH (08:49)
--- NOTE | 2016-09-25 09:38 | HHI.DS ---
Discharge Summary Admission Date September 23, 2016 at 18:24 Discharge Date: September 25, 2016 Admitting Diagnosis hyperkalemia, chronic kidney insufficiency, right upper quadrant rian (1) Abdominal pain ICD Code: R10.9 Diagnosis: Principal (2) Hyperkalemia ICD Code: E87.5 Diagnosis: Principal (3) Near syncope ICD Code: R55 Diagnosis: Secondary (4) Anemia ICD Code: D64.9 Diagnosis: Secondary (5) Chronic renal insufficiency ICD Code: N18.9 Diagnosis: Secondary Procedures none Brief History - From Admission 80-year-old male with PMH of Hypertension, diabetes, hyperlipidemia anemia, GERD, peripheral vascular disease, arthritis , hearing deficits, kidney stones who presents to emergency department from his physician's office, Dr. Salas, for evaluation of abdominal pain. The patient notes a one-week history of intermittent right upper quadrant abdominal pain that is worse with eating, the patient states when he eats he feels like he has to bend over to alleviate the pain. The pain is located in the right upper quadrant and radiates to the back. He does complain of mild nausea with a few episodes of vomiting. He denies any lower abdominal pain, has a history of previous appendectomy. The patient also has a history of diverticulitis with different symptoms. The patient denies any history of pancreatitis, nephrolithiasis, or current dysuria, frequency, or urgency. He denies any associated fever. The patient's last meal was at 2:45 PM, one half of a sandwich. The patient is found with hyperkalemia, received kayexalate. He says he had a large BM. Says his abdominal pain subsided, and he feels much better. He will try to eat today. Says he would like to go home later today if he tolerated food and if he continues to improve. He denies any fever or chills. No other complaints. CBC/BMP: 09/25/16 0537 09/25/16 0537 Significant Findings Laboratory Tests Test 09/23/16 09/23/16 09/23/16 09/24/16 16:50 17:30 21:15 06:48 White Blood Count 11.9 TH/MM3 (4.0-11.0) Red Blood Count 3.55 MIL/MM3 3.14 MIL/MM3 (4.50-5.90) (4.50-5.90) Hemoglobin 9.9 GM/DL 8.6 GM/DL (13.0-17.0) (13.0-17.0) Hematocrit 29.6 % 26.5 % (39.0-51.0) (39.0-51.0) Platelet Count 86 TH/MM3 69 TH/MM3 (150-450) (150-450) Monocytes (%) (Auto) 11.1 % 14.0 % (0.0-8.0) (0.0-8.0) Monocytes # (Auto) 1.3 TH/MM3 1.3 TH/MM3 (0-0.9) (0-0.9) Sodium Level 135 MEQ/L (136-145) Potassium Level 6.5 MEQ/L 6.7 MEQ/L (3.5-5.1) (3.5-5.1) Blood Urea Nitrogen 55 MG/DL (7-18) 49 MG/DL (7-18) 48 MG/DL (7-18) Creatinine 2.80 MG/DL 2.50 MG/DL 2.50 MG/DL (0.60-1.30) (0.60-1.30) (0.60-1.30) Estimat Glomerular Filtration 22 ML/MIN (>89) 25 ML/MIN (>89) 25 ML/MIN (>89) Rate Random Glucose 143 MG/DL 67 MG/DL 112 MG/DL (74-106) (74-106) (74-106) Calcium Level 8.0 MG/DL 7.6 MG/DL (8.5-10.1) (8.5-10.1) Platelet Estimate LOW (NORMAL) Test 09/25/16 05:37 Red Blood Count 3.21 MIL/MM3 (4.50-5.90) Hemoglobin 8.8 GM/DL (13.0-17.0) Hematocrit 26.5 % (39.0-51.0) Platelet Count 75 TH/MM3 (150-450) Mean Platelet Volume 11.7 FL (7.0-11.0) Monocytes (%) (Auto) 15.9 % (0.0-8.0) Monocytes # (Auto) 1.4 TH/MM3 (0-0.9) Platelet Estimate LOW (NORMAL) Chloride Level 109 MEQ/L (98-107) Blood Urea Nitrogen 45 MG/DL (7-18) Creatinine 2.40 MG/DL (0.60-1.30) Estimat Glomerular Filtration 26 ML/MIN (>89) Rate Random Glucose 121 MG/DL (74-106) Calcium Level 7.9 MG/DL (8.5-10.1) Imaging Last Impressions Gall Bladder Ultrasound 09/23/16 0000 Signed Impressions: Service Date/Time: Friday, September 23, 2016 17:41 - CONCLUSION: Echogenic liver compatible with fatty infiltration or hepatocellular disease. No evidence of cholelithiasis Tyler Bynum MD Abdomen/Pelvis CT 09/23/16 0000 Signed Impressions: Service Date/Time: Friday, September 23, 2016 20:47 - CONCLUSION: 1. No evidence of acute abdominal or pelvic process. No masses are identified. 2. Diverticulosis without evidence of diverticulitis. 3. Cholelithiasis Tyler Bynum MD PE at Discharge GENERAL: This is a pleasant 80 yo male, well-nourished, well-developed patient, in no apparent distress. SKIN: No rashes, ecchymoses or lesions. Cool and dry. HEAD: Atraumatic. Normocephalic. No temporal or scalp tenderness. EYES: Pupils equal round and reactive. Extraocular motions intact. No scleral icterus. No injection or drainage. ENT: Nose without bleeding, purulent drainage or septal hematoma. Throat without erythema, tonsillar hypertrophy or exudate. Uvula midline. Airway patent. NECK: Trachea midline. No JVD or lymphadenopathy. Supple, nontender, no meningeal signs. CARDIOVASCULAR: Regular rate and rhythm without murmurs, gallops, or rubs. RESPIRATORY: Clear to auscultation. Breath sounds equal bilaterally. No wheezes , rales, or rhonchi. GASTROINTESTINAL: Abdomen soft, non-tender, nondistended. No hepato-splenomegaly , or palpable masses. No guarding. MUSCULOSKELETAL: Extremities without clubbing, cyanosis, or edema. No joint tenderness, effusion, or edema noted. No calf tenderness. Negative Homans sign bilaterally. NEUROLOGICAL: Awake and alert. Cranial nerves II through XII intact. Motor and sensory grossly within normal limits. Five out of 5 muscle strength in all muscle groups. Normal speech. Pt update on day of discharge Less abdominal pain. Patient is improving. No n/v/d/c. Able to eat. Good urine OP. Feels stronger. Wants to go home. Patient improved earlier than expected. Hospital Course 80 yo male with abdominal pain Nausea likely 2/2 Hyperkalemia. K of 6.7 on admission. Received Kayexalate. K level trending down. Monitor H/o CKD, kidney indices at ~ baseline. Seen by nephrology. Clerated for DC , to follow up as OP. CT abd pelvis 1. No evidence of acute abdominal or pelvic process. No masses are identified. 2. Diverticulosis without evidence of diverticulitis. 3. Cholelithiasis On IVF Hypertension Restart home meds. Monitor BP Diabetes mellitus. ISS, accuchecks. Monitor BS Hyperlipidemia continue statin Anemia poss 2/2 CKD Thrombocytopenia. No signs of bleeding . Monitor GERD PPI DVT ppx : SCD/TEDs Patient improved earlier than expected. Discharged home in stable condition to follow up as OP with PCP and consultants. Pt Condition on Discharge: Stable Discharge Disposition: Discharge Home Discharge Time: > 30 minutes Discharge Instructions DIET: Follow Instructions for: Heart Healthy Diet, Diabetic Diet, Renal Failure Diet Activities you can perform: Regular-No Restrictions Follow up Referrals: Nephrology - 1 Week PCP Follow-up - 3-5 Days New Medications: Hydrocodone-Acetaminophen ([place]) 5-325 mg Tab 1 TAB PO Q6H PRN PAIN #7 Ref 0 TAB Continued Medications: Amlodipine (Amlodipine) 5 Mg Tab 5 MG PO DAILY MEDICATION CURRENTLY ON HOLD Blood Pressure Management #30 Ref 0 TAB Brimonidine Opth Drops (Alphagan P Opth Drops) 0.1% Soln 1 DROP EACH EYE BID Intraocular pressure #1 Ref 0 BOTTLE Carvedilol (Carvedilol) 12.5 Mg Tab 12.5 MG PO BID #60 Ref 0 TAB Cholecalciferol (D3 Super Strength) 2,000 Unit Cap 2000 UNITS PO DAILY Nutritional Supplement #30 Ref 0 CAP Cilostazol (Cilostazol) 50 Mg Tab 50 MG PO BID INTERMITTENT CLAUDICATION Ref 0 TAB Ezetimibe-Simvastatin (Vytorin) 10-40 Mg Tab 1 TAB PO HS #30 Ref 0 TAB Ferrous Sulfate (Ferrous Sulfate) 325 Mg Tab 325 MG PO DAILY Nutritional Supplement #30 Ref 0 TAB Hydralazine (Hydralazine) 25 Mg Tab 25 MG PO BID Take with a meal Blood Pressure Management #60 Ref 0 TAB Insulin Glargine Inj (Lantus Solostar Pen Inj) 300 Unit/3 Ml Pen 50 UNITS SQ HS Blood Sugar Management Ref 0 PEN Insulin Lispro (Human) Inj (Humalog Inj) 1,000 Unit/10 Ml Vial SQ PER SLIDING SCALE Blood Sugar Management #1 Ref 0 VIAL Isosorbide Mononitrate ER (Isosorbide Mononitrate ER) 60 Mg Tab 60 MG PO DAILY Prevent Chest Pain #30 Ref 0 TAB Lisinopril (Lisinopril) 10 Mg Tab 10 MG PO DAILY #30 Ref 0 TAB Sertraline (Sertraline) 100 Mg Tab 100 MG PO DAILY #30 Ref 0 TAB Travoprost Opth Drops (Travatan Z Opth Drops) 0.004 % Soln 1 DROP EACH EYE BID Glaucoma #1 Ref 0 BOTTLE Lelo Watson MD September 25, 2016 09:38
== END 2016-09-25 11:39 | disposition home or self-care (01) | DRG 641 ==
LOC: PHED 16:16 → PHEDA 18:24 → PH3A 21:06
PROVIDERS: ADMIT Hospitalist; ATTEND Hospitalist
DX: E87.5 Hyperkalemia (principal); N17.9 Acute kidney failure, unspecified; E86.0 Dehydration; I12.9 Hypertensive chronic kidney disease with stage 1 through stage 4 chronic kidney disease, or unspecified chronic kidney disease; N18.4 Chronic kidney disease, stage 4 (severe); D69.6 Thrombocytopenia, unspecified; K76.0 Fatty (change of) liver, not elsewhere classified; E11.9 Type 2 diabetes mellitus without complications; Z79.4 Long term (current) use of insulin; K80.20 Calculus of gallbladder without cholecystitis without obstruction; E78.5 Hyperlipidemia, unspecified; K21.9 Gastro-esophageal reflux disease without esophagitis; K57.90 Diverticulosis of intestine, part unspecified, without perforation or abscess without bleeding; H91.90 Unspecified hearing loss, unspecified ear; D64.9 Anemia, unspecified; Z96.651 Presence of right artificial knee joint
CPT/HCPCS: 74176; 76705; 80048; 80053; 83690; 84132; 85025; 93005; 96361; 96374; 96375; J1815; J2270; J2405; J7030; Q9963

== ENCOUNTER 2016-10-03 14:01 | Inpatient (IN) | payer MEDICARE, OTHER ==
[~2016-10-03] VITALS: Ht 170.2 cm; Wt 76.2 kg
[~2016-10-03 14:01] MED LIST changes: -ASPI-110 PO; +CHOL20005 PO; +FERR325T PO; +NORC5TAB PO
[2016-10-03 14:03] VITALS: BP 98/44; PULSE 63; RESP 18; TEMP 97.9; O2SAT 94
[2016-10-03 14:21] VITALS: BP 117/60; PULSE 65; RESP 18; O2SAT 95
[2016-10-03] MEDS ORDERED: FERR324T4 PO (14:33)
[2016-10-03] MEDS ORDERED: VYTO10TA9 PO (14:33)
[2016-10-03] MEDS ORDERED: HYDR-3799 PO (14:33)
[2016-10-03 14:42] VITALS: O2SAT 97
--- NOTE | 2016-10-03 14:43 | PD ---
HPI Chief Complaint: abdominal pain Time Seen by Provider: 14:13 Travel History International Travel<30 days: No Contact w/Intl Traveler<30days: No Traveled to known affect area: No History of Present Illness HPI 80-year-old male complains of right upper quadrant abdominal pain and nausea. Patient states that he has intermittent symptom for the past 2 months. Patient was admitted to [facility] September 23 and discharge September 25 for right upper quadrant abdominal pain. Patient was found to have hyperkalemia, near-syncope, anemia and chronic renal disease. CT scan abdomen pelvis at that time showed cholelithiasis. Gallbladder ultrasound was negative for gallbladder disease. Patient was treated for hyperkalemia and discharged home. Patient states that he has intermittent right upper quadrant abdominal pain however is worse since last night. Patient states the pain is sharp pain localized to the right upper quadrant of the abdomen. Patient denies any pain radiation. Patient states that he has severe nausea but no vomiting or diarrhea. Patient states that he has mild intermittent cough. Patient denies any fever chills. Patient status post appendectomy. Patient has history of hypertension, diabetes, hyperlipidemia, GERD, peripheral vascular disease, arthritis, hearing deficit, and kidney stone. On a scale of 1-10 the pain is an 8. PFSH Past Medical History Hx Anticoagulant Therapy: Yes Anemia: Yes Arthritis: Yes Asthma: No Autoimmune Disease: No Blood Disorders: No Anxiety: No Depression: No Cancer: Yes (SKIN) Cardiac Catheterization: Yes Cardiovascular Problems: Yes High Cholesterol: Yes Chest Pain: Yes Congestive Heart Failure: No COPD: No Cerebrovascular Accident: No Coronary Artery Disease: Yes Diabetes: Yes Patient Takes Glucophage: No Diminished Hearing: Yes (SLIGHT HEARING DEFICIT) Endocrine: Yes Gastrointestinal Disorders: Yes GERD: No Glaucoma: No Genitourinary: Yes Hepatitis: No Hiatal Hernia: No Hypertension: Yes Immune Disorder: No Kidney Stones: Yes Medical other: Yes (SHUNT RT HEAD TO STOMACHE) Musculoskeletal: Yes Neurologic: Yes Psychiatric: No Reproductive: No Respiratory: Yes Immunizations Current: Yes Myocardial Infarction: No Renal Failure: Yes Sleep Apnea: No Thyroid Disease: No Ulcer: No Tetanus Vaccination: < 5 Years Influenza Vaccination: Yes PNEUMOCCOCAL Vaccine (Year): 1 Past Surgical History Abdominal Surgery: Yes (BURST APPENDIX 1982) Appendectomy: Yes Cardiac Surgery: Yes (HEART CATH 2007) Cholecystectomy: No Eye Surgery: Yes (CATARACTS AJAY EYES LENS IMPLANTS) Joint Replacement: Yes (TOTAL LT KNEE 2003) Oral Surgery: Yes (JAW SURGERY WITH IMPLANT) Thoracic Surgery: No Tonsillectomy: Yes Other Surgery: Yes (APPENDECTOMY, EYE SURGERY, JAW W/ IMPLANT,TONSILECTOMY, L KNEE REPLACEMENT.) Social History Alcohol Use: No Tobacco Use: No Substance Use: No Allergies-Medications (Allergen,Severity, Reaction): Coded Allergies: Cipro (Verified Allergy, Unknown, 10/03/16) Reported Meds & Prescriptions Reported Meds & Active Scripts Active Denair (Hydrocodone-Acetaminophen) 5-325 mg Tab 1 Tab PO Q6H PRN Reported Ferrous Sulfate DR (Ferrous Sulfate) 324 Mg Tabdr 324 Mg PO DAILY Hydralazine HCl 25 Mg Tablet 25 Mg PO BID Vytorin (Ezetimibe-Simvastatin) 10-40 Mg Tab 1 Tab PO HS D3 Super Strength (Cholecalciferol) 2,000 Unit Cap 2,000 Units PO DAILY Humalog Inj (Insulin Human Lispro) 1,000 Unit/10 Ml Vial SQ PER SLIDING SCALE Lantus Solostar Pen Inj (Insulin Glargine) 300 Unit/3 Ml Pen 40 Units SQ HS Travatan Z Opth Drops (Travoprost) 0.004 % Soln 1 Drop EACH EYE BID Alphagan P Opth Drops (Brimonidine Tartrate) 0.1% Soln 1 Drop EACH EYE BID Amlodipine (Amlodipine Besylate) 5 Mg Tab 5 Mg PO DAILY MEDICATION CURRENTLY ON HOLD Sertraline (Sertraline HCl) 100 Mg Tab 100 Mg PO DAILY Cilostazol 50 Mg Tab 50 Mg PO BID Isosorbide Mononitrate ER (Isosorbide Mononitrate) 60 Mg Tab 60 Mg PO DAILY Carvedilol 12.5 Mg Tab 12.5 Mg PO BID Lisinopril 10 Mg Tab 10 Mg PO DAILY Review of Systems General / Constitutional: No: Fever Eyes: No: Visual changes HENT: No: Headaches Cardiovascular: No: Chest Pain or Discomfort Respiratory: No: Shortness of Breath Gastrointestinal: Positive: Nausea, Abdominal Pain Genitourinary: No: Dysuria Musculoskeletal: No: Pain Skin: No Rash Neurologic: No: Weakness Psychiatric: No: Depression Endocrine: No: Polydipsia Hematologic/Lymphatic: No: Easy Bruising Physical Exam Narrative GENERAL: Well-nourished, well-developed patient. SKIN: Focused skin assessment warm/dry. HEAD: Normocephalic. EYES: No scleral icterus. No injection or drainage. NECK: Supple, trachea midline. No JVD or lymphadenopathy. CARDIOVASCULAR: Regular rate and rhythm without murmurs, gallops, or rubs. RESPIRATORY: Breath sounds equal bilaterally. No accessory muscle use. GASTROINTESTINAL: Abdomen soft, nondistended. Patient has moderate tenderness on palpation right upper quadrant of the abdomen. No rebound tenderness. No mass. MUSCULOSKELETAL: No cyanosis, or edema. BACK: Nontender without obvious deformity. No CVA tenderness. Neurologic exam normal. Data Data Last Documented VS Vital Signs Date Time Temp Pulse Resp B/P Pulse Ox O2 Delivery O2 Flow Rate FiO2 10/03/16 14:42 97 Room Air 10/03/16 14:21 65 18 117/60 10/03/16 14:03 97.9 Orders Electrocardiogram (10/03/16 14:24) Complete Blood Count With Diff (10/03/16 14:24) Comprehensive Metabolic Panel (10/03/16 14:24) Troponin I (10/03/16 14:24) Prothrombin Time / Inr (Pt) (10/03/16 14:24) Act Partial Throm Time (Ptt) (10/03/16 14:24) Lipase (10/03/16 14:24) Urinalysis - C+S If Indicated (10/03/16 14:24) Chest, Single Ap (10/03/16 14:24) Iv Access Insert/Monitor (10/03/16 14:24) Ecg Monitoring (10/03/16 14:24) Oximetry (10/03/16 14:24) Ct Abd/Pel W/O Iv Contrast (10/03/16 14:24) Sodium Chlor 0.9% 1000 Ml Inj (Ns 1000 M (10/03/16 14:45) Pantoprazole Inj (Protonix Inj) (10/03/16 14:45) Ondansetron Inj (Zofran Inj) (10/03/16 14:45) Consult General Surgery (10/03/16 ) Admit Order (Ed Use Only) (10/03/16 15:59) Labs Laboratory Tests Test 10/03/16 14:38 White Blood Count 11.9 TH/MM3 Red Blood Count 3.38 MIL/MM3 Hemoglobin 9.4 GM/DL Hematocrit 28.1 % Mean Corpuscular Volume 83.2 FL Mean Corpuscular Hemoglobin 28.0 PG Mean Corpuscular Hemoglobin 33.6 % Concent Red Cell Distribution Width 14.5 % Platelet Count 92 TH/MM3 Mean Platelet Volume 10.1 FL Neutrophils (%) (Auto) 56.0 % Lymphocytes (%) (Auto) 28.1 % Monocytes (%) (Auto) 13.7 % Eosinophils (%) (Auto) 2.0 % Basophils (%) (Auto) 0.2 % Neutrophils # (Auto) 6.7 TH/MM3 Lymphocytes # (Auto) 3.4 TH/MM3 Monocytes # (Auto) 1.6 TH/MM3 Eosinophils # (Auto) 0.2 TH/MM3 Basophils # (Auto) 0.0 TH/MM3 CBC Comment AUTO DIFF Differential Comment AUTO DIFF CONFIRMED Platelet Estimate LOW Platelet Morphology Comment NORMAL Prothrombin Time 10.9 SEC Prothromb Time International 1.0 RATIO Ratio Activated Partial 26.8 SEC Thromboplast Time Sodium Level 138 MEQ/L Potassium Level 5.0 MEQ/L Chloride Level 104 MEQ/L Carbon Dioxide Level 25.7 MEQ/L Anion Gap 8 MEQ/L Blood Urea Nitrogen 44 MG/DL Creatinine 2.70 MG/DL Estimat Glomerular Filtration 23 ML/MIN Rate Random Glucose 238 MG/DL Calcium Level 8.5 MG/DL Total Bilirubin 0.3 MG/DL Aspartate Amino Transf 8 U/L (AST/SGOT) Alanine Aminotransferase 15 U/L (ALT/SGPT) Alkaline Phosphatase 66 U/L Troponin I LESS THAN 0.02 NG/ML Total Protein 6.7 GM/DL Albumin 3.2 GM/DL Lipase 85 U/L [facility] Medical Decision Making Medical Screen Exam Complete: Yes Emergency Medical Condition: Yes Interpretation(s) [address] scan abdomen pelvis show multiple gallstones and a benign- appearing gallbladder. Perinephric stranding both kidneys with a 3.9 cm mass upper pole of the left kidney. CBC W was 11.9. Hemoglobin 9.4 hematocrit 20.1. Platelet 92. Normal differential. BUN 44. Creatinine 2.7. Glucose 238. Liver function enzymes are normal. Differential Diagnosis Differential diagnosis including acute cholecystitis, cholelithiasis, gastritis , PUD, pancreatitis, colitis, UTI, pyelonephritis, nephrolithiasis. Narrative Course 80-year-old male with recurrent right upper quadrant abdominal pain. Normal saline solution 100 cc an hour. Protonix 40 mg IV. Zofran 4 mg IV. Spoke with general surgery on-call, Dr. Marc Solomon. Patient will be admitted to medical service with surgical consultation. Diagnosis Primary Impression: Cholelithiasis Qualified Code: K80.20 - Calculus of gallbladder without cholecystitis without obstruction Additional Impression: Chronic kidney disease (CKD) stage G4/A1, severely decreased glomerular filtration rate (GFR) between 15-29 mL/min/1.73 square meter and albuminuria creatinine ratio less than 30 mg/g Admitting Information Admitting Physician Requests: Admit Tan Manrique MD October 03, 2016 14:43
[2016-10-03] MEDS ORDERED: PANTOPRAZOLE SODIUM 40 MG VIAL IV PUSH ONE (14:45)
[2016-10-03] MEDS ORDERED: ONDANSETRON HCL 4 MG/2 ML VIAL IV PUSH ONE (14:45)
[2016-10-03 14:51] LABS: AUTOMATED NEUTROPHIL # 6.7 TH/MM3 (1.8-7.7); BASOPHIL % 0.2 % (0.0-2.0); EOSINOPHIL # 0.2 TH/MM3 (0-0.4); HEMATOCRIT 28.1 % (39.0-51.0); LYMPH % 28.1 % (9.0-44.0); LYMPHOCYTE # 3.4 TH/MM3 (1.0-4.8); MEAN CELL VOLUME 83.2 FL (80.0-100.0); MEAN CORPUSCULAR HGB CONC 33.6 % (32.0-36.0); MONO % 13.7 % (0.0-8.0); PLATELET COUNT 92 TH/MM3 (150-450); RED BLOOD COUNT 3.38 MIL/MM3 (4.50-5.90); RED CELL DISTRIBUTION WIDTH 14.5 % (11.6-17.2); WHITE BLOOD COUNT 11.9 TH/MM3 (4.0-11.0)
[2016-10-03 14:56] LABS: HEMO FLAGS AUTO DIFF
[2016-10-03 15:05] LABS: CHLORIDE 104 MEQ/L (98-107); SODIUM (NA) 138 MEQ/L (136-145)
[2016-10-03] MEDS: SODIUM CHLOR 0.9% 1000 ML INJ 1,000 ML IV SCH (15:05)
[2016-10-03 15:09] LABS: ANION GAP 8 MEQ/L (5-15); BICARBONATE 25.7 MEQ/L (21.0-32.0); BLOOD UREA NITROGEN 44 MG/DL (7-18)
[2016-10-03 15:11] LABS: ALT (GPT) 15 U/L (12-78); AST (GOT) 8 U/L (15-37)
[2016-10-03 15:12] LABS: GLOMERULAR FILTRATION RATE 23 ML/MIN (>89)
[2016-10-03 15:13] LABS: TOTAL BILIRUBIN ADULT 0.3 MG/DL (0.2-1.0)
[2016-10-03 15:14] LABS: ALKALINE PHOSPHATASE 66 U/L (45-117)
--- NOTE | 2016-10-03 15:21 | RADHPO ---
EXAM DATE/TIME: 10/03/2016 14:39 [facility] COMPARISON: CT ABDOMEN & PELVIS W/O CONTRAST, September 23, 2016, 20:47. INDICATIONS : Right upper quadrant abdominal pain since last night. ORAL CONTRAST: No oral contrast ingested. RADIATION DOSE: 17.59 CTDIvol (mGy) MEDICAL HISTORY : Renal failure, chronic. Hypertension. SURGICAL HISTORY : Appendectomy. Tonsillectomy. Shunt. L1 surgery. ENCOUNTER: Initial ACUITY: 2 days PAIN SCALE: 8/10 LOCATION: Right upper quadrant abdomen TECHNIQUE: Volumetric scanning of the abdomen and pelvis was performed. Using automated exposure control and ad justment of the mA and/or kV according to patient size, radiation dose was kept as low as reasonably achievable to obtain optimal diagnostic quality images. FINDINGS: Minimal bibasilar parenchymal changes are noted worse on the right than the left. These are nonspeci fic and probably atelectatic. Moderate coronary artery calcifications are noted. There is no pericardial effusion. The liver is free of focal defects. Multiple gallstones are noted in the benign-appearing gallbladde r. Pancreas and adrenal glands are unremarkable. There is moderate perinephric stranding about both kidneys with a nonspecific mass upper pole of the left kidney measuring 3.9 cm. This is incompletely evaluated on today's examination. Dedicated yuli l ultrasound would be of benefit. There is no retroperitoneal adenopathy. Region of the cecum and terminal ileum are unremarkable. Pelvic contents appear normal with only scattered diverticula. CONCLUSION: 1. Multiple gallstones in a benign-appearing gallbladder. 2. Perinephric stranding with a 3.9 cm mass upper pole of the left kidney that is incompletely evalu ated on today's examination. Owen Alatorre MD FACR on October 03, 2016 at 15:04 Board Certified Radiologist. This report was verified electronically.
[2016-10-03 15:26] LABS: PLATELET ESTIMATE SMEAR LOW (NORMAL); PLATELET MORPHOLOGY NORMAL (NORMAL); SCAN/DIFF AUTO DIFF CONFIRMED
[2016-10-03 15:28] LABS: APTT (PATIENT) 26.8 SEC (24.3-30.1); PROTHROMBIN TIME - PATIENT 10.9 SEC (9.8-11.6)
--- NOTE | 2016-10-03 15:41 | RADHPO ---
EXAM DATE/TIME: 10/03/2016 15:19 [facility] COMPARISON: CHEST SINGLE AP, September 18, 2015, 15:49. INDICATIONS : Short of breath, right side upper abdomen, lower chest area pain MEDICAL HISTORY : None. SURGICAL HISTORY : None. ENCOUNTER: Initial ACUITY: 1 day PAIN SCORE: 6/10 LOCATION: Bilateral chest FINDINGS: Shunt is seen coursing down the right chest. There is minimal elevation of the right and left hemidi aphragms. Minimal bibasilar parenchymal changes are noted, worse on the left. Nodular opacity is se en in the right base stable from 09/18/2015. There is no evidence for pneumothorax. CONCLUSION: Underaerated, stable chest. Owen Alatorre MD FACR on October 03, 2016 at 15:32 Board Certified Radiologist. This report was verified electronically.
[2016-10-03] MEDS ORDERED: ONDANSETRON HCL 4 MG/2 ML VIAL IV PUSH PRN (16:15)
[2016-10-03] MEDS ORDERED: GLUCAGON 1 MG/ML VIAL OTHER PRN (16:15)
[2016-10-03] MEDS ORDERED: DEXTROSE 50% IN WATER 50 ML VIAL(D50) IV PRN (16:15)
[2016-10-03] MEDS ORDERED: ACETAMINOPHEN/HYDROcodone 325 MG/5 MG TAB PO PRN (16:30)
[2016-10-03] MEDS ORDERED: ACETAMINOPHEN 325 MG TAB PO PRN (16:30)
--- NOTE | 2016-10-03 16:32 | HHI.HP ---
[facility] Primary Care Physician Sailaja Salas MD Admission Diagnosis cholelithiasis. Chronic kidney disease. Diagnoses: (1) Symptomatic cholelithiasis Diagnosis: Principal Chief Complaint: abdominal pain Travel History International Travel<30 Days: No Contact w/Intl Traveler <30 Da: No Traveled to Known Affected Are: No History of Present Illness patient is a 80 y/o male with history of diabetes, hypertension, CKD, who presented to ER with abdominal pain. he was admitted to the hospital just recently because of abdominal pain and renal insufficiency. he says that he was doing fairly fine till last night when he started to have the same pain again. pain is localized to the RUQ with no radiation. pain was moderate to severe in intensity. pain was associated with nausea but no emesis.he denies any fever or chills. no change in bowel movement. pain was mild at the time of my evaluation. Review of Systems Constitutional: DENIES: Fever, Weight loss, Chills, Night Sweats Eyes: DENIES: Blurred vision, Diplopia, Vision loss, Double Vision Ears, nose, mouth, throat: DENIES: Tinnitus, Vertigo, Throat pain, Epistaxis Respiratory: DENIES: Apneas, Cough, Snoring, Wheezing, Hemoptysis, Sputum production, Shortness of breath Cardiovascular: DENIES: Chest pain, Palpitations, Syncope, Dyspnea on Exertion , PND, Lower Extremity Edema, Orthopnea, Claudication Gastrointestinal: COMPLAINS OF: Abdominal pain, Nausea, DENIES: Black stools, Bloody stools, Constipation, Diarrhea, Vomiting, Difficulty Swallowing, Anorexia Genitourinary: DENIES: Urinary frequency, Urgency, Hematuria, Dysuria Musculoskeletal: DENIES: Joint pain, Muscle aches, Stiffness, Joint Swelling Integumentary: DENIES: Rash Neurologic: DENIES: Abnormal gait, Headache, Localized weakness, Paresthesias, Seizures, Speech Problems, Tremor, Poor Balance Psychiatric: DENIES: Anxiety, Confusion, Mood changes, Depression, Hallucinations, Agitation, Suicidal Ideation, Homicidal Ideation, Delusions Past Family Social History Past Medical History hypertension diabetes mellitus CKD dyslipidemia Past Surgical History Appendectomy 1983 Heart catheterization 2007 Cataract Surgery bilateral eyes Total left knee arthroplasty Jaw surgery with implant Reported Medications Ferrous Sulfate DR (Ferrous Sulfate) 324 Mg Tabdr 324 Mg PO DAILY Hydralazine HCl 25 Mg Tablet 25 Mg PO BID Vytorin (Ezetimibe-Simvastatin) 10-40 Mg Tab 1 Tab PO HS D3 Super Strength (Cholecalciferol) 2,000 Unit Cap 2,000 Units PO DAILY Humalog Inj (Insulin Human Lispro) 1,000 Unit/10 Ml Vial SQ PER SLIDING SCALE Lantus Solostar Pen Inj (Insulin Glargine) 300 Unit/3 Ml Pen 40 Units SQ HS Travatan Z Opth Drops (Travoprost) 0.004 % Soln 1 Drop EACH EYE BID Alphagan P Opth Drops (Brimonidine Tartrate) 0.1% Soln 1 Drop EACH EYE BID Amlodipine (Amlodipine Besylate) 5 Mg Tab 5 Mg PO DAILY MEDICATION CURRENTLY ON HOLD Sertraline (Sertraline HCl) 100 Mg Tab 100 Mg PO DAILY Cilostazol 50 Mg Tab 50 Mg PO BID Isosorbide Mononitrate ER (Isosorbide Mononitrate) 60 Mg Tab 60 Mg PO DAILY Carvedilol 12.5 Mg Tab 12.5 Mg PO BID Lisinopril 10 Mg Tab 10 Mg PO DAILY Allergies: Coded Allergies: Cipro (Verified Allergy, Unknown, 10/03/16) Active Ordered Medications Current Medications Sodium Chloride (NS 1000 ml Inj) 1,000 ml @ 100 mls/hr Q10H IV Last administered on 10/03/16 15:05; Start 10/03/16 at 14:45 Pantoprazole Sodium (Protonix Inj) 40 mg ONCE ONCE IV PUSH Last administered on 10/03/16 15:06; Start 10/03/16 at 14:45; Stop 10/03/16 at 14:46; Status DC Ondansetron HCl (Zofran Inj) 4 mg ONCE ONCE IV PUSH Last administered on 15:05; Start 10/03/16 at 14:45; Stop 10/03/16 at 14:46; Status DC Ondansetron HCl (Zofran Inj) 4 mg Q8HR PRN IV PUSH NAUSEA; Start 10/03/16 at 16 :15 Carvedilol (Coreg) 12.5 mg BID PO ; Start 10/03/16 at 21:00 Sertraline HCl (Zoloft) 100 mg DAILY PO ; Start 10/04/16 at 09:00 Non-Formulary Medication 1 drop BID EACH EYE Intraocular pressure; Start at 21:00; Status UNV Non-Formulary Medication 1 tab HS PO ; Start 10/03/16 at 21:00; Status UNV Ferrous Sulfate (Ferrous Sulfate) 325 mg DAILY PO ; Start 10/04/16 at 09:00 Latanoprost (Xalatan 0.005% Opt Soln) 1 drop BID EACH EYE ; Start 10/03/16 at 21:00 Dextrose (D50w (Vial) Inj) 50 ml UNSCH PRN IV HYPOGLYCEMIA-SEE COMMENTS; Start 10/03/16 at 16:15 Glucagon (Glucagon Inj) 1 mg UNSCH PRN OTHER HYPOGLYCEMIA-SEE COMMENTS; Start 10/03/16 at 16:15 Insulin Human Regular (NovoLIN R SUPPLEMENTAL SCALE) 1 ACHS SLIDING SCALE SQ ; Start 10/03/16 at 21:00 Social History no smoking or drinking. Physical Exam Vital Signs Vital Signs Date Time Temp Pulse Resp B/P Pulse Ox O2 Delivery O2 Flow Rate FiO2 10/03/16 14:42 97 Room Air 10/03/16 14:21 65 18 117/60 95 Room Air 10/03/16 14:03 97.9 63 18 98/44 94 Physical Exam GENERAL: This is a well-nourished, well-developed patient, in no apparent distress. SKIN: No rashes, ecchymoses or lesions. Cool and dry. HEAD: Atraumatic. Normocephalic. No temporal or scalp tenderness. EYES: Pupils equal round and reactive. Extraocular motions intact. No scleral icterus. No injection or drainage. ENT: Nose without bleeding, purulent drainage or septal hematoma. Throat without erythema, tonsillar hypertrophy or exudate. Uvula midline. Airway patent. NECK: Trachea midline. No JVD or lymphadenopathy. Supple, nontender, no meningeal signs. CARDIOVASCULAR: Regular rate and rhythm without murmurs, gallops, or rubs. RESPIRATORY: Clear to auscultation. Breath sounds equal bilaterally. No wheezes , rales, or rhonchi. GASTROINTESTINAL: abdomen is soft with some tenderness in RUQ MUSCULOSKELETAL: Extremities without clubbing, cyanosis, or edema. No joint tenderness, effusion, or edema noted. No calf tenderness. Negative Homans sign bilaterally. NEUROLOGICAL: Awake and alert. Cranial nerves II through XII intact. Motor and sensory grossly within normal limits. Five out of 5 muscle strength in all muscle groups. Normal speech. Laboratory Laboratory Tests Test 10/03/16 14:38 White Blood Count 11.9 Red Blood Count 3.38 Hemoglobin 9.4 Hematocrit 28.1 Mean Corpuscular Volume 83.2 Mean Corpuscular Hemoglobin 28.0 Mean Corpuscular Hemoglobin 33.6 Concent Red Cell Distribution Width 14.5 Platelet Count 92 Mean Platelet Volume 10.1 Neutrophils (%) (Auto) 56.0 Lymphocytes (%) (Auto) 28.1 Monocytes (%) (Auto) 13.7 Eosinophils (%) (Auto) 2.0 Basophils (%) (Auto) 0.2 Neutrophils # (Auto) 6.7 Lymphocytes # (Auto) 3.4 Monocytes # (Auto) 1.6 Eosinophils # (Auto) 0.2 Basophils # (Auto) 0.0 CBC Comment AUTO DIFF Differential Comment AUTO DIFF CONFIRMED Platelet Estimate LOW Platelet Morphology Comment NORMAL Prothrombin Time 10.9 Prothromb Time International 1.0 Ratio Activated Partial 26.8 Thromboplast Time Sodium Level 138 Potassium Level 5.0 Chloride Level 104 Carbon Dioxide Level 25.7 Anion Gap 8 Blood Urea Nitrogen 44 Creatinine 2.70 Estimat Glomerular Filtration 23 Rate Random Glucose 238 Calcium Level 8.5 Total Bilirubin 0.3 Aspartate Amino Transf 8 (AST/SGOT) Alanine Aminotransferase 15 (ALT/SGPT) Alkaline Phosphatase 66 Troponin I LESS THAN 0.02 Total Protein 6.7 Albumin 3.2 Lipase 85 Result Diagram: 10/03/16 1438 10/03/16 1438 Assessment and Plan Assessment and Plan A/P - symptomatic cholecystectomy continue with pain control- surgery consulted. -hypertension; resume coreg with holding parameters- hold the rest of home meds due to low-normal BP readings. -diabetes mellitus; accu-check with SSI -chronic kidney disease; at his baseline- f/u as outpatient. -anemia of chronic disease- stable at his baseline- f/u as outpatient. -left kidney mass- f/u as outpatient ( d/w the patient) -DVT prophylaxis with SCD's Discussed Condition With ER physician, the patient and . Physician Certification 2 Midnight Certification Type: Admission for Inpatient Services Order for Inpatient Services The services are ordered in accordance with Medicare regulations or non- Medicare payer requirements, as applicable. In the case of services not specified as inpatient-only, they are appropriately provided as inpatient services in accordance with the 2-midnight benchmark. Estimated LOS (days): 2 days is the estimated time the patient will need to remain in the hospital, assuming treatment plan goals are met and no additional complications. Post-Hospital Plan: Home Kolby Nguyễn MD October 03, 2016 16:31
[2016-10-03 17:11] LABS: BLOOD, URINE NEG (NEG); GLUCOSE,URINE NEG (NEG); KETONE, URINE NEG (NEG); NITRITE,URINE NEG (NEG)
[2016-10-03 17:20] LABS: METHOD OF COLLECTION CLEAN CATCH; URINE COLOR YELLOW (YELLW/STRAW)
[2016-10-03 17:21] LABS: COMMENT (UR) CULT NOT INDICATED; CULTURE IF INDICATED CULT NOT INDICATED; SQUAMOUS EPITHELIAL CELL URINE 0-5 /hpf (0-5); WBC, URINE 0-2 /hpf (0-5)
[2016-10-03 17:29] VITALS: BP 160/61; PULSE 65; RESP 18; O2SAT 95
--- NOTE | 2016-10-03 17:44 | MB ---
cc: AUBRIE FLANAGAN DATE OF CONSULTATION 10/03/2016 REASON FOR CONSULTATION Symptomatic cholelithiasis. HISTORY OF PRESENT ILLNESS Mr. Daly is a very pleasant 80-year-old gentleman who presented to the [facility] ER today with complaints of ongoing epigastric and right upper quadrant abdominal pain. He states he was seen here about 2 weeks ago with a similar complaint and was told that he had gallstones and elevated potassium. He was discharged home without any surgical followup. He states that the pain began again last night after he ate dinner. The pain lasted all night and he decided to come to the emergency department. He was seen and evaluated by Dr. Tan Manrique. Dr. Manrique evaluated him and gave him some pain medicine, the pain improved. Because he had bounced back therefore surgical consultation was requested. The patient denies any previous episodes other than these two episodes. He denies any vomiting but does have some nausea and loss of appetite. He denies any fever or chills. He states now the pain is much improved from this morning and he is actually feeling better. PAST MEDICAL HISTORY On past medical history includes hypertension, renal insufficiency and diabetes. PAST SURGICAL HISTORY He has had an open appendectomy, a FINANCIAL SALES ASSISTANT shunt, total knee arthroplasty and cataract surgery. MEDICATIONS Medication list is extensive. Please see the chart. ALLERGIES HE IS ALLERGIC TO CIPRO. SOCIAL HISTORY Does not smoke or drink. He lives here locally with his . FAMILY HISTORY His family history is noncontributory. PHYSICAL EXAMINATION VITAL SIGNS: Temperature is 97, pulse of 60, blood pressure is 117/60, respiratory rate 20. GENERAL: This is a pleasant elderly gentleman sitting in his ER room, visiting with his in no distress. HEENT: Pupils are equal, reactive to light. Extraocular movements are intact. Sclera is white. Oropharynx is clear and moist. NECK: Neck is supple. No masses. LUNGS: Clear to auscultation bilaterally. HEART: S1-S2. No murmur. ABDOMEN: Soft, minimally tender right upper quadrant. Negative Morales sign. He has a paramedian scar from an appendectomy and a right upper quadrant scar from a FINANCIAL SALES ASSISTANT shunt. No obvious hernias. EXTREMITIES: Free range of motion x4. NEUROLOGICAL: Alert and oriented times 3. LABORATORY DATA White blood cell count is 11, hemoglobin 9.4, platelet count is 92. Electrolytes within normal limits except for elevated creatinine at 2.7, BUN of 44, glucose is 238. LFTs were all within normal limits. Lipase is 85. IMAGING STUDIES He had a CT scan of the abdomen and pelvis which demonstrated gallstones without evidence of cholecystitis. IMPRESSION Symptomatic cholelithiasis. PLAN At this point the patient seems to be doing fairly well. We discussed options for treatment. I agree he should probably be observed for 23 hours since he has bounced-back twice in the last 2 weeks. He can be admitted overnight to the medical service with follow-up LFTs and lipase in the morning. If lab work is normal and he is pain free I believe he can be safely discharged home to follow up with me in the office this week for consideration of an outpatient cholecystectomy. If his pain persists or his LFTs go up then he should be considered for a more urgent cholecystectomy. This was discussed with the patient and his and they are agreeable with the plan. Will follow up his lab work in the morning and see how his exam is. If his symptoms resolve I believe he can be safely discharged home. I did give him my card and asked him to call the office on Wednesday for a follow-up appointment. MD JONH Mohan/MELITON /4:56 PM /5:29 PM
[2016-10-03 18:00] VITALS: BP 144/68; PULSE 65; RESP 18; TEMP 96.7; O2SAT 93
[2016-10-03] MEDS: CARVEDILOL 12.5 MG TAB PO SCH (20:26)
[2016-10-03] MEDS: INSULIN NovoLIN REGULAR SUPPLEMENTAL SCALE SQ SCH (20:51)
[2016-10-03] MEDS: LATANOPROST 0.005% OPHT SOLN 2.5 ML BTL EACH EYE SCH (20:51)
[2016-10-03] MEDS ORDERED: BRIMONIDINE 0.1% EACH EYE SCH (21:00)
[2016-10-03] MEDS ORDERED: EZETIMIBE 10 MG TAB PO SCH (21:00)
[2016-10-03] MEDS ORDERED: PRAVASTATIN SOD 40 MG TAB PO SCH (21:00)
[2016-10-03 21:23] VITALS: BP 177/73; PULSE 71; RESP 20; TEMP 96.4; O2SAT 95
[2016-10-03] MEDS: ACETAMINOPHEN/HYDROcodone 325 MG/5 MG TAB PO PRN (21:47)
[2016-10-04] MEDS: SODIUM CHLOR 0.9% 1000 ML INJ 1,000 ML IV SCH (00:11)
[2016-10-04 00:47] VITALS: BP 120/57; PULSE 63; RESP 16; TEMP 97; O2SAT 91
[2016-10-04] MEDS: INSULIN NovoLIN REGULAR SUPPLEMENTAL SCALE SQ SCH (06:26)
[2016-10-04 07:38] LABS: CHLORIDE 110 MEQ/L (98-107); POTASSIUM 4.9 MEQ/L (3.5-5.1); SODIUM (NA) 142 MEQ/L (136-145)
[2016-10-04 07:44] LABS: ANION GAP 7 MEQ/L (5-15); BICARBONATE 24.8 MEQ/L (21.0-32.0)
[2016-10-04 07:45] LABS: BLOOD UREA NITROGEN 39 MG/DL (7-18)
[2016-10-04 07:46] LABS: BASOPHIL % 0.3 % (0.0-2.0); EOSINOPHIL # 0.2 TH/MM3 (0-0.4); EOSINOPHIL % 2.7 % (0.0-4.0); HEMATOCRIT 26.4 % (39.0-51.0); LYMPH % 27.9 % (9.0-44.0); LYMPHOCYTE # 2.4 TH/MM3 (1.0-4.8); MEAN CORPUSCULAR HEMOGLOBIN 27.7 PG (27.0-34.0); MEAN CORPUSCULAR HGB CONC 32.6 % (32.0-36.0); MONO % 12.4 % (0.0-8.0); NEUT % 56.7 % (16.0-70.0); PLATELET COUNT 70 TH/MM3 (150-450); RED CELL DISTRIBUTION WIDTH 14.5 % (11.6-17.2); WHITE BLOOD COUNT 8.7 TH/MM3 (4.0-11.0)
[2016-10-04 07:47] LABS: ALT (GPT) 15 U/L (12-78); AST (GOT) 9 U/L (15-37); GLOMERULAR FILTRATION RATE 27 ML/MIN (>89)
[2016-10-04 07:49] LABS: HEMO FLAGS AUTO DIFF; TOTAL BILIRUBIN ADULT 0.3 MG/DL (0.2-1.0)
[2016-10-04 07:50] LABS: ALKALINE PHOSPHATASE 49 U/L (45-117)
[2016-10-04 08:00] VITALS: BP 149/70; PULSE 65; RESP 18; TEMP 97; O2SAT 91
[2016-10-04] MEDS: ACETAMINOPHEN/HYDROcodone 325 MG/5 MG TAB PO PRN (08:01)
[2016-10-04] MEDS: CARVEDILOL 12.5 MG TAB PO SCH (08:01)
[2016-10-04] MEDS: LATANOPROST 0.005% OPHT SOLN 2.5 ML BTL EACH EYE SCH (08:02)
[2016-10-04 08:31] LABS: PLATELET ESTIMATE SMEAR NORMAL (NORMAL); PLATELET MORPHOLOGY ENLARGED (NORMAL); SCAN/DIFF AUTO DIFF CONFIRMED
--- NOTE | 2016-10-04 08:36 | HHI.PR ---
Subjective Remarks overall doing fine. RUQ pain has much improved. no nausea or vomiting or fever. says that he can go home today. Objective Vitals Vital Signs Date Time Temp Pulse Resp B/P Pulse Ox O2 Delivery O2 Flow Rate FiO2 10/04/16 04:00 10/04/16 00:47 97.0 63 16 120/57 91 10/03/16 21:23 96.4 71 20 177/73 95 10/03/16 18:00 96.7 65 18 144/68 93 10/03/16 17:29 65 18 160/61 95 Room Air 10/03/16 14:42 97 Room Air 10/03/16 14:21 65 18 117/60 95 Room Air 10/03/16 14:03 97.9 63 18 98/44 94 I/O 10/03/16 10/03/16 10/03/16 10/04/16 10/04/16 10/04/16 07:00 15:00 23:00 07:00 15:00 23:00 Intake Total 486 ml 836 ml Output Total 575 ml Balance 486 ml 261 ml Intake IV Total 486 ml 836 ml Output Urine Total 575 ml # Voids 2 Result Diagram: 10/04/16 0647 10/04/16 0647 Imaging Last Impressions Chest X-Ray 10/03/161423 Signed Impressions: Service Date/Time: Monday, October 03, 2016 15:19 - CONCLUSION: Underaerated, stable chest. Owen Alatorre MD FACR Abdomen/Pelvis CT 10/03/161423 Signed Impressions: Service Date/Time: Monday, October 03, 2016 14:39 - CONCLUSION: 1. Multiple gallstones in a benign-appearing gallbladder. 2. Perinephric stranding with a 3.9 cm mass upper pole of the left kidney that is incompletely evaluated on today's examination. Owen Alatorre MD FACR Objective Remarks GENERAL: This is a well-nourished, well-developed patient, in no apparent distress. CARDIOVASCULAR: Regular rate and regular rhythm without murmurs, gallops, or rubs. RESPIRATORY: Clear to auscultation. Breath sounds equal bilaterally. No wheezes , rales, or rhonchi. GASTROINTESTINAL: Abdomen soft, non-tender, nondistended. Normal, active bowel sounds MUSCULOSKELETAL: Extremities without clubbing, cyanosis, or edema. NEURO: Alert & Oriented x4 to person, place, time, situation. Moves all ext x4 Procedures none Medications and IVs Current Medications Sodium Chloride (NS 1000 ml Inj) 1,000 ml @ 100 mls/hr Q10H IV Last administered on 10/04/16 00:11; Start 10/03/16 at 14:45 Pantoprazole Sodium (Protonix Inj) 40 mg ONCE ONCE IV PUSH Last administered on 10/03/16 15:06; Start 10/03/16 at 14:45; Stop 10/03/16 at 14:46; Status DC Ondansetron HCl (Zofran Inj) 4 mg ONCE ONCE IV PUSH Last administered on 15:05; Start 10/03/16 at 14:45; Stop 10/03/16 at 14:46; Status DC Ondansetron HCl (Zofran Inj) 4 mg Q8HR PRN IV PUSH NAUSEA; Start 10/03/16 at 16 :15 Carvedilol (Coreg) 12.5 mg BID PO Last administered on 10/04/16 08:01; Start 10/03/16 at 21:00 Sertraline HCl (Zoloft) 100 mg DAILY PO Last administered on 10/04/16 08:01; Start 10/04/16 at 09:00 Patient Own Medication 1 ea BID EACH EYE ; Start 10/03/16 at 21:00; Status Hold EZETIMIBE (Zetia) 10 mg HS PO Last administered on 10/03/16 20:26; Start 10/03 at 21:00 Ferrous Sulfate (Ferrous Sulfate) 325 mg DAILY PO Last administered on 08:01; Start 10/04/16 at 09:00 Latanoprost (Xalatan 0.005% Opt Soln) 1 drop BID EACH EYE Last administered on 10/04/16 08:02; Start 10/03/16 at 21:00 Dextrose (D50w (Vial) Inj) 50 ml UNSCH PRN IV HYPOGLYCEMIA-SEE COMMENTS; Start 10/03/16 at 16:15 Glucagon (Glucagon Inj) 1 mg UNSCH PRN OTHER HYPOGLYCEMIA-SEE COMMENTS; Start 10/03/16 at 16:15 Insulin Human Regular (NovoLIN R SUPPLEMENTAL SCALE) 1 ACHS SLIDING SCALE SQ Last administered on 10/03/16 20:51; Start 10/03/16 at 21:00 Pravastatin Sodium (Pravachol) 80 mg HS PO Last administered on 10/03/16 20:26 ; Start 10/03/16 at 21:00 Acetaminophen (Tylenol) 650 mg Q4H PRN PO FEVER/PAIN 1-3; Start 10/03/16 at 16: 30 Acetaminophen/ Hydrocodone Bitart ([place] 5-325 Mg) 1 tab Q4H PRN PO PAIN 4-7 Last administered on 10/04/16 08:01; Start 10/03/16 at 16:30 Acetaminophen/ Hydrocodone Bitart ([place] 5-325 Mg) 2 tab Q4H PRN PO PAIN 8-10 ; Start 10/03/16 at 16:30 A/P Assessment and Plan A/P - symptomatic cholelithiasis previously d/w ; pain has improved and LFT's normal- patient can be discharged home with f/u with surgery as outpatient. -hypertension; resume home meds upon discharge. -diabetes mellitus; accu-check with SSI -chronic kidney disease; at his baseline- f/u as outpatient. -anemia of chronic disease- stable at his baseline- f/u as outpatient. -left kidney mass- f/u as outpatient ( d/w the patient) -DVT prophylaxis with SCD's Discharge Planning dc home if tolerates the diet. advised to comply with low fat diet. f/u; pcp and surgery. see med list. d/w the patient. Kolby Nguyễn MD October 04, 2016 08:36
--- NOTE | 2016-10-04 08:38 | HHI.DCPOC ---
Discharge Care Plan Diagnosis: (1) Symptomatic cholelithiasis Goals to Promote Your Health * To prevent worsening of your condition and complications * To maintain your health at the optimal level Directions to Meet Your Goals Take your medications as prescribed Follow your dietary instruction Follow activity as directed Keep your appointments as scheduled Take your immunizations and boosters as scheduled If your symptoms worsen call your PCP, if no PCP go to Urgent Care Center or Emergency Room Smoking is Dangerous to Your Health. Avoid second hand smoke Call the 24-hour hour crisis hotline for domestic abuse at Kolby Nguyễn MD October 04, 2016 08:38
--- NOTE | 2016-10-04 08:39 | HHI.DS ---
Discharge Summary Admission Date October 03, 2016 at 16:01 Discharge Date: October 04, 2016 Admitting Diagnosis cholelithiasis. Chronic kidney disease. (1) Symptomatic cholelithiasis ICD Code: K80.20 Diagnosis: Principal Procedures none Brief History - From Admission patient is a 80 y/o male with history of diabetes, hypertension, CKD, who presented to ER with abdominal pain. he was admitted to the hospital just recently because of abdominal pain and renal insufficiency. he says that he was doing fairly fine till last night when he started to have the same pain again. pain is localized to the RUQ with no radiation. pain was moderate to severe in intensity. pain was associated with nausea but no emesis.he denies any fever or chills. no change in bowel movement. pain was mild at the time of my evaluation. CBC/BMP: 10/04/16 0647 10/04/16 0647 Significant Findings Laboratory Tests Test 10/03/16 10/03/16 10/04/16 14:38 17:00 06:47 White Blood Count 11.9 TH/MM3 (4.0-11.0) Red Blood Count 3.38 MIL/MM3 3.10 MIL/MM3 (4.50-5.90) (4.50-5.90) Hemoglobin 9.4 GM/DL 8.6 GM/DL (13.0-17.0) (13.0-17.0) Hematocrit 28.1 % 26.4 % (39.0-51.0) (39.0-51.0) Platelet Count 92 TH/MM3 70 TH/MM3 (150-450) (150-450) Monocytes (%) (Auto) 13.7 % 12.4 % (0.0-8.0) (0.0-8.0) Monocytes # (Auto) 1.6 TH/MM3 1.1 TH/MM3 (0-0.9) (0-0.9) Platelet Estimate LOW (NORMAL) Blood Urea Nitrogen 44 MG/DL (7-18) 39 MG/DL (7-18) Creatinine 2.70 MG/DL 2.30 MG/DL (0.60-1.30) (0.60-1.30) Estimat Glomerular Filtration 23 ML/MIN (>89) 27 ML/MIN (>89) Rate Random Glucose 238 MG/DL 141 MG/DL (74-106) (74-106) Aspartate Amino Transf 8 U/L (15-37) 9 U/L (15-37) (AST/SGOT) Troponin I LESS THAN 0.02 NG/ML (0.02-0.05) Albumin 3.2 GM/DL 2.9 GM/DL (3.4-5.0) (3.4-5.0) Urine Protein 30 mg/dL (NEG-TRACE) Urine Hyaline Casts 10-14 /lpf (RARE) Platelet Morphology Comment ENLARGED (NORMAL) Chloride Level 110 MEQ/L (98-107) Calcium Level 7.8 MG/DL (8.5-10.1) Total Protein 5.7 GM/DL (6.4-8.2) Imaging Last Impressions Chest X-Ray 10/03/161423 Signed Impressions: Service Date/Time: Monday, October 03, 2016 15:19 - CONCLUSION: Underaerated, stable chest. Owen Alatorre MD FACR Abdomen/Pelvis CT 10/03/161423 Signed Impressions: Service Date/Time: Monday, October 03, 2016 14:39 - CONCLUSION: 1. Multiple gallstones in a benign-appearing gallbladder. 2. Perinephric stranding with a 3.9 cm mass upper pole of the left kidney that is incompletely evaluated on today's examination. Owen Alatorre MD FACR PE at Discharge GENERAL: This is a well-nourished, well-developed patient, in no apparent distress. CARDIOVASCULAR: Regular rate and regular rhythm without murmurs, gallops, or rubs. RESPIRATORY: Clear to auscultation. Breath sounds equal bilaterally. No wheezes , rales, or rhonchi. GASTROINTESTINAL: Abdomen soft, non-tender, nondistended. Normal, active bowel sounds MUSCULOSKELETAL: Extremities without clubbing, cyanosis, or edema. NEURO: Alert & Oriented x4 to person, place, time, situation. Moves all ext x4 Hospital Course - symptomatic cholelithiasis previously d/w ; pain has improved and LFT's normal- patient can be discharged home with f/u with surgery as outpatient. -hypertension; resume home meds upon discharge. -diabetes mellitus; accu-check with SSI -chronic kidney disease; at his baseline- f/u as outpatient. -anemia of chronic disease- stable at his baseline- f/u as outpatient. -left kidney mass- f/u as outpatient ( d/w the patient) -DVT prophylaxis with SCD's Pt Condition on Discharge: Good Discharge Disposition: Discharge Home Discharge Time: <= 30 minutes Discharge Instructions DIET: Follow Instructions for: Low Fat Diet Activities you can perform: Regular-No Restrictions Follow up Referrals: PCP Follow-up Surgical Continued Medications: Amlodipine (Amlodipine) 5 Mg Tab 5 MG PO DAILY MEDICATION CURRENTLY ON HOLD Blood Pressure Management #30 Ref 0 TAB Brimonidine Opth Drops (Alphagan P Opth Drops) 0.1% Soln 1 DROP EACH EYE BID Intraocular pressure #1 Ref 0 BOTTLE Carvedilol (Carvedilol) 12.5 Mg Tab 12.5 MG PO BID #60 Ref 0 TAB Cholecalciferol (D3 Super Strength) 2,000 Unit Cap 2000 UNITS PO DAILY Nutritional Supplement #30 Ref 0 CAP Cilostazol (Cilostazol) 50 Mg Tab 50 MG PO BID INTERMITTENT CLAUDICATION Ref 0 TAB Ezetimibe-Simvastatin (Vytorin) 10-40 Mg Tab 1 TAB PO HS #30 Ref [address] (Ferrous Sulfate DR) 324 Mg Tabdr 324 MG PO DAILY Nutritional Supplement #30 Ref 0 TAB Hydralazine HCl (Hydralazine HCl) 25 Mg Tablet 25 MG PO BID Blood Pressure Management #60 Ref 0 TAB Hydrocodone-Acetaminophen ([place]) 5-325 mg Tab 1 TAB PO Q6H PRN PAIN #7 Ref 0 TAB Insulin Glargine Inj (Lantus Solostar Pen Inj) 300 Unit/3 Ml Pen 40 UNITS SQ HS Blood Sugar Management Ref 0 PEN Insulin Lispro (Human) Inj (Humalog Inj) 1,000 Unit/10 Ml Vial SQ PER SLIDING SCALE Blood Sugar Management #1 Ref 0 VIAL Isosorbide Mononitrate ER (Isosorbide Mononitrate ER) 60 Mg Tab 60 MG PO DAILY Prevent Chest Pain #30 Ref 0 TAB Lisinopril (Lisinopril) 10 Mg Tab 10 MG PO DAILY #30 Ref 0 TAB Sertraline (Sertraline) 100 Mg Tab 100 MG PO DAILY #30 Ref 0 TAB Travoprost Opth Drops (Travatan Z Opth Drops) 0.004 % Soln 1 DROP EACH EYE BID Glaucoma #1 Ref 0 BOTTLE Kolby Nguyễn MD October 04, 2016 08:39
[2016-10-04] MEDS ORDERED: SERTRALINE HCL 100 MG TAB PO SCH (09:00)
[2016-10-04] MEDS ORDERED: FERROUS SULFATE 325 MG (65 MG ELEMENTAL IRON) TAB PO SCH (09:00)
[2016-10-04 09:31] VITALS: RESP 18
--- NOTE | 2016-10-04 15:19 | EKG ---
Date Performed: 10/03/2016 Time Performed: 15:07:44 PTAGE: 80 years EKG: Sinus bradycardia with borderline 1st degree A-V block Borderline ECG Since PREVIOUS TRACING , no significant change noted PREVIOUS TRACIN09/23/2016 17.51 DOCTOR: Nestor Chamorro Interpretating Date/Time 10/04/2016 15:19:02
--- NOTE | 2016-10-07 11:59 | PQ ---
Physician Query Response Document PATIENT: ANETTE LYNNE : 1935 ADMIT DATE: 10/03/2016 4:01 PM DISCH DATE: 10/04/2016 10:34 AM RESPONDING PROVIDER #: [email or web address] QUERY TEXT: Kidney Disease, Chronic CKD Stage Chronic Kidney Disease (CKD) is documented in the Medical Record. Please specify the disease stage ( includes probable or suspected) Such as: -- Chronic kidney disease Stage 1 -- Chronic kidney disease Stage 2 -- Chronic kidney disease Stage 3 -- Chronic kidney disease Stage 4 -- Chronic kidney disease Stage 5 -- Chronic kidney disease Stage 5, requiring dialysis -- End Stage Renal Disease -- Other, please specify Stages are defined by the [employer] as follows: CKD Stage I GFR >= 90 ml / min per 1.73 m2 and persistent albuminuria CKD Stage 2 GFR between 60 and 89 with persistent albuminuria CKD Stage 3 GFR between 30 and 59 CKD Stage 4 GFR between 15 and 29 CKD Stage 5 GFR between <15 or End Stage Renal Disease Your prompt response is appreciated, please do not hesitate to contact the CDI/Coding Hotline with an y questions, comments and/or concerns you may have at ext. [phone] The patient's Clinical Indicators include: Hypertension, Chronic Kidney Disease: All documents G4/A1 with GFR 23, BUN 44, Creatinine 2.7-ED Record DM Query created by: Bridgette Rudolph on 10/07/2016 8:21 AM RESPONSE TEXT: CKD- stage 4 Electronically signed by: Kolby Nguyễn MD 10/07/2016 11:55 AM
== END 2016-10-04 10:34 | disposition home or self-care (01) | DRG 445 ==
LOC: PHED 14:01 → PHEDA 16:01 → PH3B 17:43
PROVIDERS: ADMIT Internal Medicine; ATTEND Internal Medicine
DX: K80.20 Calculus of gallbladder without cholecystitis without obstruction (principal); N18.4 Chronic kidney disease, stage 4 (severe); E11.22 Type 2 diabetes mellitus with diabetic chronic kidney disease; E11.51 Type 2 diabetes mellitus with diabetic peripheral angiopathy without gangrene; I12.9 Hypertensive chronic kidney disease with stage 1 through stage 4 chronic kidney disease, or unspecified chronic kidney disease; N28.89 Other specified disorders of kidney and ureter; D63.8 Anemia in other chronic diseases classified elsewhere; K21.9 Gastro-esophageal reflux disease without esophagitis; E78.5 Hyperlipidemia, unspecified; M19.90 Unspecified osteoarthritis, unspecified site; I25.10 Atherosclerotic heart disease of native coronary artery without angina pectoris; H91.90 Unspecified hearing loss, unspecified ear; Z79.4 Long term (current) use of insulin; Z88.1 Allergy status to other antibiotic agents; Z96.652 Presence of left artificial knee joint
CPT/HCPCS: 71010; 74176; 80053; 81001; 82948; 83690; 84484; 85025; 85610; 85730; 93005; 96361; 96374; 96375; C9113; J2405; J7030

== ENCOUNTER 2016-10-07 11:30 | Observation (INO) | payer MEDICARE, OTHER ==
[~2016-10-07] VITALS: Ht 170.2 cm; Wt 78.3 kg
[~2016-10-07 11:30] MED LIST changes: +FERR324T4 PO; -FERR325T PO; +HYDR-3799 PO; -HYDR25TA35 PO
[2016-10-07] MEDS ORDERED: BUPIVACAINE/EPINEPHRINE 0.25% PF 10 ML VIAL ONE (11:41)
[2016-10-07] MEDS ORDERED: ePHEDrine/NS 50 MG/5 ML SYR IV ONE (12:00)
[2016-10-07] MEDS ORDERED: NEOSTIGMINE 3 MG/3 ML SYR IV ONE (12:00)
[2016-10-07] MEDS ORDERED: PROPOFOL 200 MG/20 ML AMP IV ONE (12:00)
[2016-10-07] MEDS ORDERED: ONDANSETRON HCL 4 MG/2 ML VIAL IV PUSH ONE (12:00)
[2016-10-07] MEDS ORDERED: PHENYLEPH/NS 1000 MCG/10 ML SYR IV ONE (12:00)
[2016-10-07] MEDS ORDERED: CHLORHEXIDINE GLUCONATE 2 % 1 PACK (2 CLOTHS) TOPICAL PRN (12:15)
[2016-10-07] MEDS ORDERED: SODIUM CHLORID 0.9% 500 ML IV PRN (12:15)
[2016-10-07] MEDS ORDERED: METRONIDAZOLE 500 MG/100 ML ISONTONIC SOLN IV SCH (12:15)
[2016-10-07] MEDS ORDERED: METOPROLOL TARTRATE 25 MG TAB PO PRN (12:15)
[2016-10-07] MEDS ORDERED: POVIDONE IODINE 5% (ANTISEPSIS KIT) 4 APPLICATIONS EACH NARE PRN (12:15)
[2016-10-07] MEDS ORDERED: ceFAZolin 2 GM PREMIX 50 ML IV SCH (12:15)
[2016-10-07] MEDS ORDERED: INSULIN HUMAN REGULAR 1,000 UNITS/10 ML VIAL SQ PRN (12:15)
[2016-10-07] MEDS ORDERED: LACTATED RINGER'S 1000 ML IV PRN (12:15)
[2016-10-07 12:22] VITALS: BP 121/53; PULSE 61; RESP 18; TEMP 98; O2SAT 96
[2016-10-07 12:46] LABS: AUTOMATED NEUTROPHIL # 5.6 TH/MM3 (1.8-7.7); BASOPHIL # 0.1 TH/MM3 (0-0.2); BASOPHIL % 1.1 % (0.0-2.0); EOSINOPHIL # 0.2 TH/MM3 (0-0.4); HEMATOCRIT 26.7 % (39.0-51.0); LYMPH % 22.2 % (9.0-44.0); LYMPHOCYTE # 2.1 TH/MM3 (1.0-4.8); MEAN CELL VOLUME 82.5 FL (80.0-100.0); MEAN CORPUSCULAR HEMOGLOBIN 27.7 PG (27.0-34.0); MEAN CORPUSCULAR HGB CONC 33.6 % (32.0-36.0); MONO % 14.4 % (0.0-8.0); NEUT % 60.3 % (16.0-70.0); PLATELET COUNT 87 TH/MM3 (150-450); RED BLOOD COUNT 3.24 MIL/MM3 (4.50-5.90); RED CELL DISTRIBUTION WIDTH 14.6 % (11.6-17.2); WHITE BLOOD COUNT 9.3 TH/MM3 (4.0-11.0)
[2016-10-07 12:49] LABS: HEMO FLAGS AUTO DIFF
[2016-10-07] MEDS ORDERED: fentaNYL CITRATE 250 MCG/5 ML AMP ONE (13:16)
[2016-10-07] MEDS ORDERED: ACETAMINOPHEN 1000 MG/100 ML VIAL IV ONE (13:16)
[2016-10-07] MEDS ORDERED: MIDAZOLAM HCL 2 MG/2 ML VIAL ONE (13:16)
[2016-10-07] MEDS ORDERED: DEXAMETHASONE SOD PHOS 4 MG/ML VIAL ONE (13:17)
[2016-10-07] MEDS ORDERED: FAMOTIDINE 20 MG/2 ML VIAL ONE (13:17)
[2016-10-07] MEDS ORDERED: DICLOFENAC SODIUM 37.5 MG/ML VIAL IV PUSH ONE (13:17)
[2016-10-07 13:32] LABS: ACANTHOCYTES OCC (NORMAL); PLATELET ESTIMATE SMEAR LOW (NORMAL); PLATELET MORPHOLOGY ENLARGED (NORMAL); SCAN/DIFF AUTO DIFF CONFIRMED
[2016-10-07] MEDS ORDERED: NALOXONE HCL 0.4 MG/ML AMP IV PRN (15:15)
[2016-10-07] MEDS ORDERED: diphenhydrAMINE HCL 25 MG CAP PO PRN (15:15)
[2016-10-07] MEDS ORDERED: ONDANSETRON HCL 4 MG/2 ML VIAL IV PRN (15:15)
[2016-10-07] MEDS ORDERED: SODIUM CHLORIDE 0.9% FLUSH 5 ML FLUSH IVF PRN (15:15)
[2016-10-07] MEDS ORDERED: Post-op Orders (for Pharmacy) MISC XX ONE (15:15)
[2016-10-07] MEDS ORDERED: MORPHINE SULFATE 4 MG/ML INJ IV PUSH PRN (15:15)
[2016-10-07] MEDS ORDERED: ACETAMINOPHEN/HYDROcodone 325 MG/5 MG TAB PO PRN ×2 (15:15)
[2016-10-07] MEDS ORDERED: DO NOT ADM ANY ANTICOAGULANT DRUGS PRN (15:45)
[2016-10-07 20:00] VITALS: BP 154/68; PULSE 61; RESP 20; TEMP 96.7; O2SAT 96
[2016-10-07] MEDS: SODIUM CHLORIDE 0.9% FLUSH 5 ML FLUSH IVF SCH (21:00)
[2016-10-08] VITALS: BP 134/60; PULSE 75; RESP 20; TEMP 97.3; O2SAT 94
[2016-10-08] MEDS ORDERED: MELATONIN 5 MG TAB PO ONE (03:30)
[2016-10-08] MEDS: SODIUM CHLOR 0.9% 1000 ML INJ 1,000 ML IV SCH ×2 (03:41→03:45)
[2016-10-08 05:58] LABS: AUTOMATED NEUTROPHIL # 8.3 TH/MM3 (1.8-7.7); BASOPHIL % 0.4 % (0.0-2.0); EOSINOPHIL # 0.1 TH/MM3 (0-0.4); EOSINOPHIL % 1.1 % (0.0-4.0); HEMATOCRIT 24.4 % (39.0-51.0); LYMPH % 12.5 % (9.0-44.0); LYMPHOCYTE # 1.4 TH/MM3 (1.0-4.8); MEAN CELL VOLUME 83.8 FL (80.0-100.0); MEAN CORPUSCULAR HEMOGLOBIN 27.3 PG (27.0-34.0); MEAN CORPUSCULAR HGB CONC 32.6 % (32.0-36.0); PLATELET COUNT 67 TH/MM3 (150-450); RED BLOOD COUNT 2.91 MIL/MM3 (4.50-5.90); WHITE BLOOD COUNT 11.6 TH/MM3 (4.0-11.0)
[2016-10-08 05:59] LABS: HEMO FLAGS AUTO DIFF
[2016-10-08 06:53] LABS: SCAN/DIFF AUTO DIFF CONFIRMED
[2016-10-08 08:00] VITALS: BP 154/72; PULSE 74; RESP 18; TEMP 97.4; O2SAT 93
[2016-10-08 08:21] VITALS: O2SAT 93
[2016-10-08] MEDS: SODIUM CHLORIDE 0.9% FLUSH 5 ML FLUSH IVF SCH (09:00)
--- NOTE | 2016-10-08 09:32 | HHI.DS ---
Discharge Summary Admission Date October 07, 2016 at 15:07 Discharge Date: Oct 08, 2016 Admitting Diagnosis Brief History This is an 80 year old male POD1 lap taya. CBC/BMP: 10/08/16 0510 Significant Findings Laboratory Tests Test 10/07/16 10/08/16 12:25 05:10 Red Blood Count 3.24 MIL/MM3 2.91 MIL/MM3 (4.50-5.90) (4.50-5.90) Hemoglobin 9.0 GM/DL 8.0 GM/DL (13.0-17.0) (13.0-17.0) Hematocrit 26.7 % 24.4 % (39.0-51.0) (39.0-51.0) Platelet Count 87 TH/MM3 67 TH/MM3 (150-450) (150-450) Monocytes (%) (Auto) 14.4 % 14.0 % (0.0-8.0) (0.0-8.0) Monocytes # (Auto) 1.3 TH/MM3 1.6 TH/MM3 (0-0.9) (0-0.9) Platelet Estimate LOW (NORMAL) Platelet Morphology Comment ENLARGED (NORMAL) White Blood Count 11.6 TH/MM3 (4.0-11.0) Mean Platelet Volume 11.2 FL (7.0-11.0) Neutrophils (%) (Auto) 72.0 % (16.0-70.0) Neutrophils # (Auto) 8.3 TH/MM3 (1.8-7.7) PE at Discharge Ambulating in room Cardio: RRR Resp: CTAB Abd: post op tenderness; lap sites c/d/i Hospital Course This is an 80 year old male who was seen by Dr. Solomon in [facility] for biliary colic. The patient's pain resolved and he was DCed. He followed up in the office and was set up for a laparoscopic cholecystectomy. The procedure was completed without any complications. He was able to tolerate a regular diet. His pain was controlled using oral pain medications. He will continue all of his home medications as usual. He will follow up with Dr. Solomon in about one week. Pt Condition on Discharge: Good Discharge Disposition: Discharge Home Discharge Instructions DIET: Follow Instructions for: As Tolerated, No Restrictions Activities you can perform: See Additionl Instruction Other Activity Instructions: Resume home medications Okay to shower; pat incisions dry Avoid heavy pulling pushing and leaving Keturah Dover Oct 08, 2016 09:32
--- NOTE | 2016-10-08 11:44 | MP ---
cc: AUBRIE FLANAGAN M.D. DATE OF SURGERY 10/07/2016 PREOPERATIVE DIAGNOSIS Chronic cholecystitis POSTOPERATIVE DIAGNOSIS Chronic cholecystitis PROCEDURE PERFORMED Laparoscopic cholecystectomy SURGEON Aubrie Flanagan MD ANESTHESIA General endotracheal COMPLICATIONS None INDICATION FOR THE PROCEDURE Mr. Daly is a very pleasant 80 year-old gentleman who was in the [place] ER over the weekend with an episode of biliary colic. He was seen and evaluated and offered elective cholecystectomy. The patient was doing well and decided to go home and follow up this week. The patient called the office on Wednesday requesting that his gallbladder surgery be scheduled. He has had multiple attacks in the past and was encouraged to have his gallbladder removed. He was offered elective cholecystectomy today. The risks and benefits of laparoscopic cholecystectomy was discussed with him and he was agreeable. DETAILS The patient was identified, brought to the operating room, placed supine on the operating table. After adequate general endotracheal anesthesia was achieved, the abdomen was prepped and draped in standard surgical fashion. The supraumbilical space was anesthetized with quarter percent Marcaine. A supraumbilical incision was made. Dissection was carried out into the subcutaneous tissue to the midline fascia. The midline fascia was then incised sharply. A finger was then placed in the peritoneal cavity without difficulty. A blunt balloon trocar was inserted and the abdomen was insufflated to 50 mmHg using CO2 gas. Next, the 30 degree laparoscope was inserted. The patient had some paramedian incisions from a MASTER[employer] PROGRAMMER shunt. The MASTER[employer] PROGRAMMER shunt catheter was easily visualized. Attention was directed to the right upper quadrant. Two 5 mm port were placed in the right upper quadrant after anesthetizing the skin and subcutaneous tissue with quarter percent Marcaine. The liver was identified. The gallbladder was completely encased in omentum. The omentum was carefully dissected off the gallbladder using blunt and electrocautery dissection. The gallbladder was then elevated cephalad. The gallbladder neck was then carefully dissected. The cystic artery and cystic duct were clearly identified in two planes. Once they were seen in two planes, they were clipped twice proximally, once distally and then divided. The gallbladder was then dissected out of the hepatic fossa using electrocautery Bovie. The gallbladder was then placed in the Endopouch bag and brought out at the supraumbilical port. The gallbladder inspected, found to contain multiple small stones. Clips were placed on the cyst duct stump without evidence of leakage of bile. The gallbladder was sent to pathology. Next, the abdominal cavity was revisualized. The liver bed was completely hemostatic. Clips were placed on the cystic artery and cystic duct stump. There was no evidence of leakage of bile or bleeding. The right upper quadrant was then rinsed out with one liter of warm saline solution. The effluent was noted be clear. MASTER[employer] PROGRAMMER shunt catheter was repositioned in the left lower quadrant. The patient's small bowel was adherent to the abdominal wall in the right paramedian incision, but this was not disturbed as this was chronic from his previous MASTER[employer] PROGRAMMER shunt. Bowel appeared to be active and peristalsing. It was not compromised in any way. All ports were then removed under direct vision. The midline fascia was repaired with a 0 Vicryl in [id number] fashion. Skin was closed with 4-0 Vicryl. The patient tolerated the procedure well, was awakened and brought to recovery in stable condition. MD JOHN Mohan/DEVIN /3:14 PM /11:29 AM
== END 2016-10-08 10:33 | disposition home or self-care (01) ==
LOC: HSDC 11:30 → HSDI 15:07 → N07B 17:37
PROVIDERS: ADMIT Surgery Trauma Surgery; ATTEND Surgery Trauma Surgery
DX: K80.10 Calculus of gallbladder with chronic cholecystitis without obstruction (principal); I25.10 Atherosclerotic heart disease of native coronary artery without angina pectoris; E11.22 Type 2 diabetes mellitus with diabetic chronic kidney disease; I12.0 Hypertensive chronic kidney disease with stage 5 chronic kidney disease or end stage renal disease; N18.5 Chronic kidney disease, stage 5; D64.9 Anemia, unspecified; E78.5 Hyperlipidemia, unspecified; M19.90 Unspecified osteoarthritis, unspecified site; G47.30 Sleep apnea, unspecified; E66.9 Obesity, unspecified; Z68.27 Body mass index [BMI] 27.0-27.9, adult
CPT/HCPCS: 00790; 47562; 82948; 85025; 88304; 94150; 96360; 96361; G0378; J0131; J0690; J2250; J2370; J2405; J2710; J3010; J7030; J7120; J1100; J1130

== ENCOUNTER 2016-11-03 19:17 | Observation (INO) | payer MEDICARE, OTHER ==
[~2016-11-03] VITALS: Ht 170.2 cm; Wt 76.9 kg
[~2016-11-03 19:17] MED LIST changes: -NORC5TAB PO
[2016-11-03] MEDS ORDERED: ASPIRIN 325 MG TAB PO ONE (19:30)
[2016-11-03] MEDS ORDERED: SODIUM CHLORIDE 0.9% FLUSH 10 ML FLUSH IVF PRN (19:30)
[2016-11-03] MEDS: NITROGLYCERIN 0.4 MG SL 25 TABS/BTL SL SCH ×2 (19:30→19:35)
[2016-11-03 20:00] LABS: AUTOMATED NEUTROPHIL # 6.4 TH/MM3 (1.8-7.7); BASOPHIL % 0.3 % (0.0-2.0); EOSINOPHIL # 0.6 TH/MM3 (0-0.4); EOSINOPHIL % 5.2 % (0.0-4.0); HEMATOCRIT 28.3 % (39.0-51.0); LYMPH % 24.3 % (9.0-44.0); LYMPHOCYTE # 2.7 TH/MM3 (1.0-4.8); MEAN CORPUSCULAR HEMOGLOBIN 27.4 PG (27.0-34.0); MEAN CORPUSCULAR HGB CONC 32.7 % (32.0-36.0); NEUT % 57.2 % (16.0-70.0); PLATELET COUNT 82 TH/MM3 (150-450); RED BLOOD COUNT 3.37 MIL/MM3 (4.50-5.90); RED CELL DISTRIBUTION WIDTH 14.2 % (11.6-17.2); WHITE BLOOD COUNT 11.2 TH/MM3 (4.0-11.0)
[2016-11-03 20:04] VITALS: BP 165/64; PULSE 66; RESP 16; TEMP 98.3
[2016-11-03 20:07] VITALS: O2SAT 96
[2016-11-03 20:10] LABS: CHLORIDE 105 MEQ/L (98-107); POTASSIUM 4.8 MEQ/L (3.5-5.1); SODIUM (NA) 137 MEQ/L (136-145)
[2016-11-03 20:13] LABS: ANION GAP 8 MEQ/L (5-15); BICARBONATE 23.7 MEQ/L (21.0-32.0); BLOOD UREA NITROGEN 54 MG/DL (7-18); MAGNESIUM 2.1 MG/DL (1.5-2.5)
[2016-11-03 20:16] LABS: GLOMERULAR FILTRATION RATE 22 ML/MIN (>89)
[2016-11-03 20:21] LABS: HEMO FLAGS AUTO DIFF
[2016-11-03 20:34] LABS: APTT (PATIENT) 28.6 SEC (24.3-30.1); PROTHROMBIN TIME - PATIENT 10.7 SEC (9.8-11.6)
[2016-11-03 20:45] LABS: CREATINE KINASE 30 U/L (39-308)
--- NOTE | 2016-11-03 20:59 | PD ---
HPI Chief Complaint: Chest Pain Time Seen by Provider: 19:24 Travel History International Travel<30 days: No Contact w/Intl Traveler<30days: No Traveled to known affect area: No History of Present Illness HPI The patient is 80 and has has chest pain which has lasted all day long. It comes and goes. Location is left chest and he states there is some radiation to the back. He reports minimal difficulty breathing. He's had a cough intermittently for 1 month nonproductive. He said no fever. The onset occurred while he was watching television. He has diabetes hypertension hyperlipidemia and family history of coronary artery disease. Severity mild-to- moderate. PFSH Past Medical History Hx Anticoagulant Therapy: Yes Anemia: Yes Arthritis: Yes Asthma: No Autoimmune Disease: No Blood Disorders: No Anxiety: No Depression: No Heart Rhythm Problems: No Cancer: Yes (skin) Cardiac Catheterization: Yes Cardiovascular Problems: Yes High Cholesterol: Yes Chemotherapy: No Chest Pain: Yes Congestive Heart Failure: No COPD: No Cerebrovascular Accident: No Coronary Artery Disease: Yes Diabetes: Yes Patient Takes Glucophage: No Diminished Hearing: Yes (SLIGHT HEARING DEFICIT) Endocrine: No Gastrointestinal Disorders: Yes GERD: No Glaucoma: No Genitourinary: Yes Hepatitis: No Hiatal Hernia: No Hypertension: Yes Immune Disorder: No Kidney Stones: Yes Musculoskeletal: Yes Neurologic: No Psychiatric: No Reproductive: No Respiratory: No Immunizations Current: Yes Myocardial Infarction: No Radiation Therapy: No Renal Failure: Yes Sickle Cell Disease: Yes Sleep Apnea: No Thyroid Disease: No Ulcer: No Tetanus Vaccination: < 5 Years PNEUMOCCOCAL Vaccine (Year): 1 Past Surgical History Abdominal Surgery: Yes (BURST APPENDIX 1982) Appendectomy: Yes Body Medical Devices: implant in jaw Cardiac Surgery: Yes (HEART CATH 2007) Cholecystectomy: No Eye Surgery: Yes (CATARACTS AJAY EYES LENS IMPLANTS) Joint Replacement: Yes (TOTAL LT KNEE 2003) Oral Surgery: Yes (JAW SURGERY WITH IMPLANT) Thoracic Surgery: No Tonsillectomy: Yes Other Surgery: Yes (APPENDECTOMY, EYE SURGERY, JAW W/ IMPLANT,TONSILECTOMY, L KNEE REPLACEMENT.) Social History Alcohol Use: No Tobacco Use: No Substance Use: No Allergies-Medications (Allergen,Severity, Reaction): Coded Allergies: Cipro (Verified Allergy, Unknown, was told he had a reaction to it, ) Reported Meds & Prescriptions Reported Meds & Active Scripts Active Reported Ferrous Sulfate DR (Ferrous Sulfate) 324 Mg Tabdr 324 Mg PO DAILY Hydralazine HCl 25 Mg Tablet 25 Mg PO BID Vytorin (Ezetimibe-Simvastatin) 10-40 Mg Tab 1 Tab PO HS D3 Super Strength (Cholecalciferol) 2,000 Unit Cap 2,000 Units PO DAILY Humalog Inj (Insulin Human Lispro) 1,000 Unit/10 Ml Vial SQ PER SLIDING SCALE Lantus Solostar Pen Inj (Insulin Glargine) 300 Unit/3 Ml Pen 40 Units SQ HS Travatan Z Opth Drops (Travoprost) 0.004 % Soln 1 Drop EACH EYE BID Alphagan P Opth Drops (Brimonidine Tartrate) 0.1% Soln 1 Drop EACH EYE BID Amlodipine (Amlodipine Besylate) 5 Mg Tab 5 Mg PO HS Sertraline (Sertraline HCl) 100 Mg Tab 100 Mg PO DAILY Cilostazol 50 Mg Tab 50 Mg PO BID Isosorbide Mononitrate ER (Isosorbide Mononitrate) 60 Mg Tab 60 Mg PO DAILY Carvedilol 12.5 Mg Tab 12.5 Mg PO BID Lisinopril 10 Mg Tab 10 Mg PO DAILY Review of Systems Except as stated in HPI: all other systems reviewed are Neg Physical Exam Narrative GENERAL: 80-year-old male pleasant well-nourished well-developed SKIN: Focused skin assessment warm/dry. HEAD: Atraumatic. Normocephalic. EYES: Pupils equal and round. No scleral icterus. No injection or drainage. ENT: No nasal bleeding or discharge. Mucous membranes pink and moist. NECK: Trachea midline. No JVD. CARDIOVASCULAR: Regular rate and rhythm. No murmur appreciated. RESPIRATORY: No accessory muscle use. Clear to auscultation. Breath sounds equal bilaterally. GASTROINTESTINAL: Abdomen soft, non-tender, nondistended. Hepatic and splenic margins not palpable. MUSCULOSKELETAL: No obvious deformities. No clubbing. No cyanosis. No edema. NEUROLOGICAL: Awake and alert. No obvious cranial nerve deficits. Motor grossly within normal limits. Normal speech. PSYCHIATRIC: Appropriate mood and affect; insight and judgment normal. Data Data Last Documented VS Vital Signs Date Time Temp Pulse Resp B/P Pulse Ox O2 Delivery O2 Flow Rate FiO2 11/03/16 21:49 66 18 145/75 96 Room Air 11/03/16 20:04 98.3 Vital signs reviewed Orders Electrocardiogram (11/03/16 19:30) Basic Metabolic Panel (Bmp) (11/03/16 19:30) Ckmb (Isoenzyme) Profile (11/03/16 19:30) Complete Blood Count With Diff (11/03/16 19:30) Magnesium (Mg) (11/03/16 19:30) Prothrombin Time / Inr (Pt) (11/03/16 19:30) Act Partial Throm Time (Ptt) (11/03/16 19:30) Troponin I (11/03/16 19:30) Chest, Single Ap (11/03/16 19:30) Ecg Monitoring (11/03/16:30) Iv Access Insert/Monitor (11/03/16:30) Oximetry (11/03/16:30) Oxygen Administration (11/03/16:30) Aspirin (Aspirin) (11/03/16 19:30) Sodium Chloride 0.9% Flush (Ns Flush) (11/03/16 19:30) Nitroglycerin Sl (Nitrostat Sl) (11/03/16 19:30) Place In Observation (11/03/16 21:52) Activity Bed Rest With Brp (11/03/16 21:52) Vital Signs (Adult) Q4H (11/03/16 21:52) Cardiac Rhythm .As Directed (11/03/16 21:52) Notify Dr: Other .PRN (11/03/16 21:52) Notify Dr. Parameters (11/03/16 21:52) Resp Oxygen Nasal Cannula (11/03/16 ) Diet Npo (11/04/16 Breakfast) Ckmb (Isoenzyme) Profile (11/03/16 23:00) Ckmb (Isoenzyme) Profile (11/04/16 02:00) Troponin I (11/03/16 23:00) Troponin I (11/04/16 02:00) Electrocardiogram (11/03/16 23:00) Electrocardiogram (11/04/16 02:00) ^ Obtain (11/03/16 21:52) Sodium Chloride 0.9% Flush (Ns Flush) (11/03/16 22:00) Sodium Chloride 0.9% Flush (Ns Flush) (11/04/16 09:00) Web Application Developer / Telemetry CRUZ.[id number] (11/03/16 21:52) Dext 5%-Nacl 0.9% 1000 Ml Inj (D5w-Ns 10 (11/03/16 22:00) Bedside Glucose CRUZ.AC&HS (11/03/16 21:54) Blood Glucose Goal (Criteria) (11/03/16 21:54) Hypoglycemia 70 Mg/Dl Or < (11/03/16 21:54) Notify Dr: Other (11/03/16 21:54) Dextrose 50% In Twin (Vial) Inj (D50w (Vi (11/03/16 22:00) Glucagon Inj (Glucagon Inj) (11/03/16 22:00) Admit Order (Ed Use Only) (11/03/16 22:00) Labs Laboratory Tests Test 11/03/16 19:50 White Blood Count 11.2 TH/MM3 Red Blood Count 3.37 MIL/MM3 Hemoglobin 9.2 GM/DL Hematocrit 28.3 % Mean Corpuscular Volume 84.0 FL Mean Corpuscular Hemoglobin 27.4 PG Mean Corpuscular Hemoglobin 32.7 % Concent Red Cell Distribution Width 14.2 % Platelet Count 82 TH/MM3 Mean Platelet Volume 12.7 FL Neutrophils (%) (Auto) 57.2 % Lymphocytes (%) (Auto) 24.3 % Monocytes (%) (Auto) 13.0 % Eosinophils (%) (Auto) 5.2 % Basophils (%) (Auto) 0.3 % Neutrophils # (Auto) 6.4 TH/MM3 Lymphocytes # (Auto) 2.7 TH/MM3 Monocytes # (Auto) 1.5 TH/MM3 Eosinophils # (Auto) 0.6 TH/MM3 Basophils # (Auto) 0.0 TH/MM3 CBC Comment AUTO DIFF Differential Comment FINAL DIFF MANUAL Platelet Estimate LOW Platelet Morphology Comment NORMAL Prothrombin Time 10.7 SEC Prothromb Time International 1.0 RATIO Ratio Activated Partial 28.6 SEC Thromboplast Time Sodium Level 137 MEQ/L Potassium Level 4.8 MEQ/L Chloride Level 105 MEQ/L Carbon Dioxide Level 23.7 MEQ/L Anion Gap 8 MEQ/L Blood Urea Nitrogen 54 MG/DL Creatinine 2.80 MG/DL Estimat Glomerular Filtration 22 ML/MIN Rate Random Glucose 203 MG/DL Calcium Level 8.5 MG/DL Magnesium Level 2.1 MG/DL Total Creatine Kinase 30 U/L Troponin I LESS THAN 0.02 NG/ML MDM Medical Decision Making Medical Screen Exam Complete: Yes Emergency Medical Condition: Yes Medical Record Reviewed: Yes Differential Diagnosis NSTEMI, unstable angina, coronary vasospasm, PE, PTX, aortic dissection, pericarditis, myocarditis, endocarditis, PNA, esophageal disease, aneurysm, musculoskeletal etiologies, anxiety, cocaine/sympathomimetic abuse Narrative Course CBC & BMP Diagram 11/03/16 19:50 Renal insufficiency is stable for the patient Troponin is less than 0.02 EKG reveals a sinus rhythm at a rate of 73 with normal axis and intervals and no ischemic injury pattern INR 1.0 Chest x-ray: There is a density in the middle portion of the right lung base at the hemidiaphragm which is of indeterminate significance, likely atelectasis The patient has multiple risk factors not limited to coronary catheterization 10 years ago with numerous luminal irregularities up to 40%. Chest pain center protocol considered appropriate. Patient agreeable with plan. d/w Dr Casanova. Diagnosis Primary Impression: Chest pain Qualified Code: R07.9 - Chest pain, unspecified type Admitting Information Admitting Physician Requests: Observation Neil Vasquez MD Nov 03, 2016 20:58
--- NOTE | 2016-11-03 20:59 | RADRPT ---
EXAM DATE/TIME: 11/03/2016 20:17 [facility] COMPARISON: CT ABDOMEN & PELVIS W/O CONTRAST, October 03, 2016, 14:39. CHEST SINGLE AP, September 18, 2015, 15:49. CT BRA IN W/O CONTRAST, July 17, 2015, 21:56. CHEST SINGLE AP, October 03, 2016, 15:19. INDICATIONS : Chest pain. MEDICAL HISTORY : None. SURGICAL HISTORY : None. ENCOUNTER: Initial ACUITY: 1 day PAIN SCORE: 8/10 LOCATION: Bilateral chest FINDINGS: There is DIAGNOSTIC TECHNICIAN shunt tubing seen over the right chest. The heart size is normal. There is increased dens ity medial right base. The left lung is clear. A significant effusion is not seen. CONCLUSION: Right medial base atelectasis or consolidation. This is unchanged from the prior exam. Amrit Hunter MD on November 03, 2016 at 20:54 Board Certified Radiologist. This report was verified electronically.
[2016-11-03 21:02] LABS: PLATELET ESTIMATE SMEAR LOW (NORMAL); PLATELET MORPHOLOGY NORMAL (NORMAL); SCAN/DIFF FINAL DIFF MANUAL
[2016-11-03 21:49] VITALS: BP_SYST 145; BP_SYST 15; BP_DIAS 75; PULSE 66; RESP 18; O2SAT 96
[2016-11-03] MEDS ORDERED: SODIUM CHLORIDE 0.9% FLUSH 10 ML FLUSH IV FLUSH PRN (22:00)
[2016-11-03] MEDS ORDERED: DEXT 5%-NACL 0.9% 1000 ML INJ 1,000 ML IV SCH (22:00)
[2016-11-03] MEDS ORDERED: GLUCAGON 1 MG/ML VIAL OTHER PRN (22:00)
[2016-11-03] MEDS ORDERED: DEXTROSE 50% IN WATER 50 ML VIAL(D50) IV PRN (22:00)
[2016-11-03 22:52] VITALS: O2SAT 96
[2016-11-03 23:22] LABS: CREATINE KINASE 26 U/L (39-308)
[2016-11-03 23:33] VITALS: BP 155/73
[2016-11-04] VITALS: BP 174/73; PULSE 66; RESP 20; TEMP 96.4; O2SAT 98
[2016-11-04 00:15] VITALS: PULSE 66
[2016-11-04 02:59] LABS: CREATINE KINASE 32 U/L (39-308)
[2016-11-04 04:00] VITALS: BP 151/71; PULSE 67; RESP 20; TEMP 96; O2SAT 95
[2016-11-04 08:00] VITALS: BP 159/68; PULSE 68; RESP 20; TEMP 96.6; O2SAT 92
[2016-11-04] MEDS ORDERED: FERROUS SULFATE 325 MG (65 MG ELEMENTAL IRON) TAB PO SCH (09:00)
[2016-11-04] MEDS ORDERED: CHOLECALCIFEROL (VIT D3) 1000 UNIT TAB PO SCH (09:00)
[2016-11-04] MEDS ORDERED: SODIUM CHLORIDE 0.9% FLUSH 10 ML FLUSH SCH (09:00)
[2016-11-04] MEDS ORDERED: CILOSTAZOL 50 MG TAB PO SCH (09:00)
[2016-11-04] MEDS ORDERED: LISINOPRIL 10 MG TAB PO SCH (09:00)
[2016-11-04] MEDS ORDERED: SERTRALINE HCL 100 MG TAB PO SCH (09:00)
[2016-11-04] MEDS ORDERED: ISOSORBIDE MONONITRATE 60 MG TAB PO SCH (09:00)
[2016-11-04] MEDS ORDERED: CARVEDILOL 12.5 MG TAB PO SCH (09:00)
[2016-11-04 10:07] VITALS: O2SAT 92
--- NOTE | 2016-11-04 10:11 | HHI.HP ---
HPI Service [facility] Primary Care Physician Sailaja Salas MD Admission Diagnosis Chest Pain Diagnoses: Chief Complaint: Chest pain Travel History International Travel<30 Days: No Contact w/Intl Traveler <30 Da: No Traveled to Known Affected Are: No History of Present Illness Mr. Daly is a pleasant 80 year old male with a history of hypertension, diabetes mellitus, CKD who presented to the emergency department on 11/03/2016 due to right-sided chest discomfort that lasted all day long yesterday. Started around 10 AM on 11/03/2016, patient experienced right upper side chest discomfort, sharp in nature and also in the middle of his chest. He denies any nausea, vomiting, diaphoresis or radiation of the pain to neck, jaw or upper extremities. Denies any shortness of breath, cough, fever or chills. Denies any changes in bowel or bladder habits. Patient sees Dr. Lester (Cardiology) and Dr. Richardson (Nephrology) in the outpatient setting. Review of Systems Except as stated in HPI: all other systems reviewed are Neg Past Family Social History Past Medical History Hypertension, diabetes mellitus Past Surgical History Left knee arthroplasty, appendectomy Reported Medications Ferrous Sulfate DR (Ferrous Sulfate) 324 Mg Tabdr 324 Mg PO DAILY Hydralazine HCl 25 Mg Tablet 25 Mg PO BID Vytorin (Ezetimibe-Simvastatin) 10-40 Mg Tab 1 Tab PO HS D3 Super Strength (Cholecalciferol) 2,000 Unit Cap 2,000 Units PO DAILY Humalog Inj (Insulin Human Lispro) 1,000 Unit/10 Ml Vial SQ PER SLIDING SCALE Lantus Solostar Pen Inj (Insulin Glargine) 300 Unit/3 Ml Pen 40 Units SQ HS Travatan Z Opth Drops (Travoprost) 0.004 % Soln 1 Drop EACH EYE BID Alphagan P Opth Drops (Brimonidine Tartrate) 0.1% Soln 1 Drop EACH EYE BID Amlodipine (Amlodipine Besylate) 5 Mg Tab 5 Mg PO HS Sertraline (Sertraline HCl) 100 Mg Tab 100 Mg PO DAILY Cilostazol 50 Mg Tab 50 Mg PO BID Isosorbide Mononitrate ER (Isosorbide Mononitrate) 60 Mg Tab 60 Mg PO DAILY Carvedilol 12.5 Mg Tab 12.5 Mg PO BID Lisinopril 10 Mg Tab 10 Mg PO DAILY Allergies: Coded Allergies: Cipro (Verified Allergy, Unknown, was told he had a reaction to it, ) Family History No family history of Alzheimer's or Parkinson's. Mother had heart disease. Dad for multiple cancer. Social History Patient denies using tobacco or alcohol or illicit drugs. Physical Exam Vital Signs Vital Signs Date Time Temp Pulse Resp B/P Pulse Ox O2 Delivery O2 Flow Rate FiO2 11/04/16 10:07 92 11/04/16 08:00 96.6 68 20 159/68 92 11/04/16 04:00 96.0 67 20 151/71 95 11/04/16 00:15 66 11/04/16 00:00 96.4 66 20 174/73 98 11/03/16 23:33 61 16 155/73 95 11/03/16 22:52 96 21 11/03/16 21:49 66 18 145/75 96 Room Air 11/03/16 20:07 96 Room Air 11/03/16 20:07 96 Room Air 11/03/16 20:07 96 Room Air 11/03/16 20:04 98.3 66 16 165/64 Physical Exam GENERAL: This is a well-nourished, well-developed patient, in no apparent distress. SKIN: No rashes, ecchymoses or lesions. Warm and dry. HEAD: Atraumatic. Normocephalic. No temporal or scalp tenderness. EYES: Pupils equal round and reactive. No injection or drainage. ENT: Nose without bleeding, purulent drainage or septal hematoma. Airway patent. NECK: Trachea midline. No lymphadenopathy. Supple, nontender, no meningeal signs. CARDIOVASCULAR: Regular rate and rhythm without murmurs, gallops, or rubs. No JVD. RESPIRATORY: Clear to auscultation. Breath sounds equal bilaterally. No wheezes , rales, or rhonchi. GASTROINTESTINAL: Abdomen soft, non-tender, nondistended. No guarding. MUSCULOSKELETAL: Extremities without clubbing, cyanosis, or edema. NEUROLOGICAL: Awake and alert. Cranial nerves II through XII intact. No focal neurological deficits. Normal speech. Laboratory Laboratory Tests Test 11/03/16 11/03/16 11/04/16 19:50 22:55 02:04 White Blood Count 11.2 Red Blood Count 3.37 Hemoglobin 9.2 Hematocrit 28.3 Mean Corpuscular Volume 84.0 Mean Corpuscular Hemoglobin 27.4 Mean Corpuscular Hemoglobin 32.7 Concent Red Cell Distribution Width 14.2 Platelet Count 82 Mean Platelet Volume 12.7 Neutrophils (%) (Auto) 57.2 Lymphocytes (%) (Auto) 24.3 Monocytes (%) (Auto) 13.0 Eosinophils (%) (Auto) 5.2 Basophils (%) (Auto) 0.3 Neutrophils # (Auto) 6.4 Lymphocytes # (Auto) 2.7 Monocytes # (Auto) 1.5 Eosinophils # (Auto) 0.6 Basophils # (Auto) 0.0 CBC Comment AUTO DIFF Differential Comment FINAL DIFF MANUAL Platelet Estimate LOW Platelet Morphology Comment NORMAL Prothrombin Time 10.7 Prothromb Time International 1.0 Ratio Activated Partial 28.6 Thromboplast Time Sodium Level 137 Potassium Level 4.8 Chloride Level 105 Carbon Dioxide Level 23.7 Anion Gap 8 Blood Urea Nitrogen 54 Creatinine 2.80 Estimat Glomerular Filtration 22 Rate Random Glucose 203 Calcium Level 8.5 Magnesium Level 2.1 Total Creatine Kinase 30 26 32 Troponin I LESS THAN 0.02 LESS THAN 0.02 LESS THAN 0.02 Result Diagram: 11/03/16 1950 11/03/161949 Imaging Last Impressions Chest X-Ray 11/03/16 1930 Signed Impressions: Service Date/Time: Thursday, November 03, 2016 20:17 - CONCLUSION: Right medial base atelectasis or consolidation. This is unchanged from the prior exam. Amrit Hunter MD Assessment and Plan Problem List: (1) Chest pain ICD Code: R07.9 Status: Acute (2) Chronic kidney disease (CKD) stage G4/A1, severely decreased glomerular filtration rate (GFR) between 15-29 mL/min/1.73 square meter and albuminuria creatinineratio less than 30 mg/g ICD Code: N18.4 Status: Acute Assessment and Plan Mr. Daly is a pleasant 80-year-old male with a history of hypertension, diabetes mellitus who presents to the emergency department on 11/03 due to atypical chest discomfort. Troponins 3 negative. EKG shows no evidence of acute ischemia. - Chest pain - Troponins 3 negative. - Patient cannot take aspirin due to multiple bruises on his skin. - Continue carvedilol, isosorbide mononitrate. - Advised patient to follow-up with his watershed engineer Dr. Rider. - Diabetes mellitus - Hypertension - Continue amlodipine 5 mg daily, carvedilol, hydralazine, Imdur, lisinopril. - Continue sliding scale insulin as well as glargine. Full code. Discharge patient to home Condition on discharge: Improved Diabetic, heart healthy Diet as tolerated Ad Diann activity Rx written: No new prescriptions written. Patient will discuss with his watershed engineer regarding aspirin daily or every other day. Follow-up with primary care physician within one week and cardiology within 1 week. Problem Qualifiers (1) Chest pain: Qualified Code: R07.9 - Chest pain, unspecified type Etienne Thompson DO Nov 04, 2016 10:11 am
[2016-11-04 12:00] VITALS: BP 117/62; PULSE 59; RESP 20; TEMP 96.4; O2SAT 95
[2016-11-04] MEDS ORDERED: ASPI81TA11 PO (12:08)
[2016-11-04] MEDS ORDERED: EZETIMIBE 10 MG TAB PO SCH (21:00)
[2016-11-04] MEDS ORDERED: PRAVASTATIN SOD 80 MG TAB PO SCH (21:00)
[2016-11-04] MEDS ORDERED: amLODIPine BESYLATE 5 MG TAB PO SCH (21:00)
--- NOTE | 2016-11-04 23:12 | EKG ---
Date Performed: 11/04/2016 Time Performed: 01:56:44 PTAGE: 80 years EKG: Sinus rhythm WITH FIRST DEGREE AV BLOCK ABNORMAL ECG PREVIOUS TRACING : 11/03/2016 23.02 Compared to prior tracing no significant change DOCTOR: Lorenzo Nunez Interpretating Date/Time 11/04/2016 23:11:08
--- NOTE | 2016-11-04 23:17 | EKG ---
Date Performed: 11/03/2016 Time Performed: 23:02:42 PTAGE: 80 years EKG: Sinus rhythm NORMAL ECG PREVIOUS TRACING : 11/03/2016 19.27 Compared to prior tracing no significant change DOCTOR: Lorenzo Nunez Interpretating Date/Time 11/04/2016 23:14:51
--- NOTE | 2016-11-04 23:24 | EKG ---
Date Performed: 11/03/2016 Time Performed: 19:27:13 PTAGE: 80 years EKG: Sinus rhythm NORMAL ECG PREVIOUS TRACING : 10/03/2016 15.07 Compared to prior tracing no significant change DOCTOR: Lorenzo Nunez Interpretating Date/Time 11/04/2016 23:23:42
== END 2016-11-04 13:25 | disposition home or self-care (01) ==
LOC: PHED 19:17 → PHEDA 22:00 → PH3A 23:37
PROVIDERS: ADMIT Hospitalist; ATTEND Hospitalist
DX: R07.9 Chest pain, unspecified (principal); I25.10 Atherosclerotic heart disease of native coronary artery without angina pectoris; I12.9 Hypertensive chronic kidney disease with stage 1 through stage 4 chronic kidney disease, or unspecified chronic kidney disease; E11.22 Type 2 diabetes mellitus with diabetic chronic kidney disease; E78.5 Hyperlipidemia, unspecified; E78.00 Pure hypercholesterolemia, unspecified; N18.9 Chronic kidney disease, unspecified; I44.0 Atrioventricular block, first degree; D57.1 Sickle-cell disease without crisis; H91.90 Unspecified hearing loss, unspecified ear; Z79.899 Other long term (current) drug therapy; Z82.49 Family history of ischemic heart disease and other diseases of the circulatory system
CPT/HCPCS: 71010; 80048; 82550; 82948; 83735; 84484; 85007; 85027; 85610; 85730; 93005; 99285; G0378; J7042

== ENCOUNTER 2016-11-11 14:38 | Emergency (ER) | payer MEDICARE, OTHER ==
[~2016-11-11] VITALS: Ht 170.2 cm; Wt 75.0 kg
[~2016-11-11 14:38] MED LIST changes: +ASPI81TA11 PO
[2016-11-11 15:11] VITALS: BP 133/63; PULSE 66; RESP 18; TEMP 98.2; O2SAT 94
[2016-11-11 15:49] LABS: BASOPHIL # 0.1 TH/MM3 (0-0.2); EOSINOPHIL # 0.6 TH/MM3 (0-0.4); EOSINOPHIL % 6.7 % (0.0-4.0); HEMATOCRIT 26.6 % (39.0-51.0); LYMPH % 21.5 % (9.0-44.0); LYMPHOCYTE # 1.8 TH/MM3 (1.0-4.8); MEAN CELL VOLUME 84.3 FL (80.0-100.0); MEAN CORPUSCULAR HEMOGLOBIN 27.4 PG (27.0-34.0); MEAN CORPUSCULAR HGB CONC 32.6 % (32.0-36.0); MONO % 12.4 % (0.0-8.0); NEUT % 58.4 % (16.0-70.0); PLATELET COUNT 83 TH/MM3 (150-450); RED BLOOD COUNT 3.15 MIL/MM3 (4.50-5.90); RED CELL DISTRIBUTION WIDTH 14.7 % (11.6-17.2); WHITE BLOOD COUNT 8.6 TH/MM3 (4.0-11.0)
[2016-11-11 15:58] LABS: HEMO FLAGS AUTO DIFF
[2016-11-11 16:01] LABS: ALT (GPT) 13 U/L (12-78); ANION GAP 7 MEQ/L (5-15); AST (GOT) 9 U/L (15-37); BICARBONATE 22.8 MEQ/L (21.0-32.0); BLOOD UREA NITROGEN 45 MG/DL (7-18); CHLORIDE 107 MEQ/L (98-107); GLOMERULAR FILTRATION RATE 25 ML/MIN (>89); SODIUM (NA) 137 MEQ/L (136-145)
[2016-11-11 16:03] LABS: ALKALINE PHOSPHATASE 56 U/L (45-117); TOTAL BILIRUBIN ADULT 0.3 MG/DL (0.2-1.0)
[2016-11-11 16:34] LABS: SCAN/DIFF AUTO DIFF CONFIRMED
--- NOTE | 2016-11-11 16:57 | PD ---
HPI Chief Complaint: Dizziness Time Seen by Provider: 16:57 Travel History International Travel<30 days: No Contact w/Intl Traveler<30days: No Traveled to known affect area: No History of Present Illness HPI Patient is an 80-year-old male presenting to emergency evaluation of dizziness and hypotension. Patient was at his doctor's office when he began to feel dizzy and faint. They checked his blood pressure and it was 78/30, subsequently 911 was called and he was brought to the emergency department. Patient reports a history of hypertension, he took his blood pressure medications this morning as he normally does. Patient reports feeling okay now. He does endorse chest pain and shortness of breath when his blood pressure was low. He states he had an episode of chest pain last week and was admitted to the hospital in [facility]. He denies any fever, chills, nausea, vomiting, shortness of breath or chest pain currently. PFSH Past Medical History Hx Anticoagulant Therapy: Yes Anemia: Yes Arthritis: Yes Cancer: Yes (skin) Cardiac Catheterization: Yes Cardiovascular Problems: Yes (HTN) High Cholesterol: Yes Chest Pain: Yes Coronary Artery Disease: Yes Diabetes: Yes (TYPE 2) Diminished Hearing: Yes (SLIGHT HEARING DEFICIT) Endocrine: Yes Gastrointestinal Disorders: Yes Genitourinary: Yes Hypertension: Yes Kidney Stones: Yes Musculoskeletal: Yes Immunizations Current: Yes Renal Failure: Yes Sickle Cell Disease: Yes Sleep Apnea: Yes PNEUMOCCOCAL Vaccine (Year): 1 Past Surgical History Abdominal Surgery: Yes (BURST APPENDIX 1982) Body Medical Devices: implant in jaw Cardiac Surgery: Yes (HEART CATH 2007) Eye Surgery: Yes (CATARACTS AJAY EYES LENS IMPLANTS) Joint Replacement: Yes (TOTAL LT KNEE 2003) Oral Surgery: Yes (JAW SURGERY WITH IMPLANT) Tonsillectomy: Yes Other Surgery: Yes (APPENDECTOMY, EYE SURGERY, JAW W/ IMPLANT,TONSILECTOMY, L KNEE REPLACEMENT.) Social History Alcohol Use: No Tobacco Use: No Substance Use: No Allergies-Medications (Allergen,Severity, Reaction): Coded Allergies: Cipro (Verified Allergy, Unknown, was told he had a reaction to it, 11/11/16 ) Reported Meds & Prescriptions Reported Meds & Active Scripts Active Aspirin EC (Aspirin) 81 Mg Tabdr 81 Mg PO DAILY Reported Ferrous Sulfate DR (Ferrous Sulfate) 324 Mg Tabdr 324 Mg PO DAILY Hydralazine HCl 25 Mg Tablet 25 Mg PO BID Vytorin (Ezetimibe-Simvastatin) 10-40 Mg Tab 1 Tab PO HS D3 Super Strength (Cholecalciferol) 2,000 Unit Cap 2,000 Units PO DAILY Humalog Inj (Insulin Human Lispro) 1,000 Unit/10 Ml Vial SQ PER SLIDING SCALE Lantus Solostar Pen Inj (Insulin Glargine) 300 Unit/3 Ml Pen 40 Units SQ HS Travatan Z Opth Drops (Travoprost) 0.004 % Soln 1 Drop EACH EYE BID Alphagan P Opth Drops (Brimonidine Tartrate) 0.1% Soln 1 Drop EACH EYE BID Amlodipine (Amlodipine Besylate) 5 Mg Tab 5 Mg PO HS Sertraline (Sertraline HCl) 100 Mg Tab 100 Mg PO DAILY Cilostazol 50 Mg Tab 50 Mg PO BID Isosorbide Mononitrate ER (Isosorbide Mononitrate) 60 Mg Tab 60 Mg PO DAILY Carvedilol 12.5 Mg Tab 12.5 Mg PO BID Lisinopril 10 Mg Tab 10 Mg PO DAILY Review of Systems Except as stated in HPI: all other systems reviewed are Neg Cardiovascular: Positive: Chest Pain or Discomfort Respiratory: Positive: Shortness of Breath Gastrointestinal: Positive: Nausea Neurologic: Positive: Dizziness Physical Exam Narrative GENERAL: Well-developed, well-nourished, alert elderly male. Resting comfortably in no acute distress. SKIN: Warm and dry. HEAD: Atraumatic. Normocephalic. EYES: Pupils equal and round. No scleral icterus. No injection or drainage. ENT: No nasal bleeding or discharge. Mucous membranes pink and moist. NECK: Trachea midline. No JVD. CARDIOVASCULAR: Regular rate and rhythm. RESPIRATORY: No accessory muscle use. Clear to auscultation. Breath sounds equal bilaterally. GASTROINTESTINAL: Abdomen soft, non-tender, nondistended. Hepatic and splenic margins not palpable. MUSCULOSKELETAL: Extremities without clubbing, cyanosis, or edema. No obvious deformities. NEUROLOGICAL: Awake and alert. No obvious cranial nerve deficits. Motor grossly within normal limits. Five out of 5 muscle strength in the arms and legs. Normal speech. PSYCHIATRIC: Appropriate mood and affect; insight and judgment normal. Data Data Last Documented VS Vital Signs Date Time Temp Pulse Resp B/P Pulse Ox O2 Delivery O2 Flow Rate FiO2 11/11/16 17:44 99 Nasal Cannula 2 11/11/16 17:30 64 16 171/77 11/11/16 15:11 98.2 Orders Electrocardiogram (11/11/16 15:19) Complete Blood Count With Diff (11/11/16 15:19) Comprehensive Metabolic Panel (11/11/16 15:19) Iv Access Insert/Monitor (11/11/16 15:19) Urinalysis - C+S If Indicated (11/11/16 16:21) Blood Glucose (11/11/16 16:21) Ecg Monitoring (11/11/16 16:21) Oximetry (11/11/16 16:21) Oxygen Administration (11/11/16 16:21) Ckmb (Isoenzyme) Profile (11/11/16 15:25) Magnesium (Mg) (11/11/16 15:25) Troponin I (11/11/16 15:25) Chest, Single Ap (11/11/16 ) Act Partial Throm Time (Ptt) (11/11/16 16:57) Prothrombin Time / Inr (Pt) (11/11/16 16:57) Sodium Polysty Sulfate Liq (Kayexalate L (11/11/16 18:15) Sodium Polysty Sulfate Liq (Kayexalate L (11/11/16 18:30) Labs Laboratory Tests Test 11/11/16 11/11/16 15:25 17:35 White Blood Count 8.6 TH/MM3 Red Blood Count 3.15 MIL/MM3 Hemoglobin 8.6 GM/DL Hematocrit 26.6 % Mean Corpuscular Volume 84.3 FL Mean Corpuscular Hemoglobin 27.4 PG Mean Corpuscular Hemoglobin 32.6 % Concent Red Cell Distribution Width 14.7 % Platelet Count 83 TH/MM3 Mean Platelet Volume 10.9 FL Neutrophils (%) (Auto) 58.4 % Lymphocytes (%) (Auto) 21.5 % Monocytes (%) (Auto) 12.4 % Eosinophils (%) (Auto) 6.7 % Basophils (%) (Auto) 1.0 % Neutrophils # (Auto) 5.0 TH/MM3 Lymphocytes # (Auto) 1.8 TH/MM3 Monocytes # (Auto) 1.1 TH/MM3 Eosinophils # (Auto) 0.6 TH/MM3 Basophils # (Auto) 0.1 TH/MM3 CBC Comment AUTO DIFF Differential Comment AUTO DIFF CONFIRMED Sodium Level 137 MEQ/L Potassium Level 6.0 MEQ/L Chloride Level 107 MEQ/L Carbon Dioxide Level 22.8 MEQ/L Anion Gap 7 MEQ/L Blood Urea Nitrogen 45 MG/DL Creatinine 2.48 MG/DL Estimat Glomerular Filtration 25 ML/MIN Rate Random Glucose 191 MG/DL Calcium Level 8.2 MG/DL Magnesium Level 1.7 MG/DL Total Bilirubin 0.3 MG/DL Aspartate Amino Transf 9 U/L (AST/SGOT) Alanine Aminotransferase 13 U/L (ALT/SGPT) Alkaline Phosphatase 56 U/L Total Creatine Kinase 28 U/L Troponin I LESS THAN 0.02 NG/ML Total Protein 6.1 GM/DL Albumin 3.1 GM/DL Prothrombin Time 10.6 SEC Prothromb Time International 1.0 RATIO Ratio Activated Partial 28.2 SEC Thromboplast Time MDM Medical Decision Making Medical Screen Exam Complete: Yes Emergency Medical Condition: Yes Interpretation(s) Vital Signs Date Time Temp Pulse Resp B/P Pulse Ox O2 Delivery O2 Flow Rate FiO2 7 15:11 98.2 66 18 133/63 94 Differential Diagnosis Orthostatic hypotension versus arrhythmia versus ACS versus other Narrative Course Patient is an 80-year-old male brought into the emergency evaluation of hypotension and dizziness. Arrival to emergency department patient's vital signs are stable. He was initially evaluated in the ambulance all, he reports feeling better than he did initially. He did report feeling a mild chest pain when he was hypotensive. Labs and imaging ordered. Potassium level is 6, Kayexalate 30 mg by mouth 1 dose. BUN and creatinine are stable when compared to prior. Patient is a history of chronic kidney disease, discussed with Dr. Johnson who recommended discontinuing lisinopril. CBC shows a stable anemia likely secondary to chronic kidney disease. Coags are unremarkable. Cardiac enzymes are negative 1 set. Patient's vital signs are stable on the emergency department. He appears well, there is no sign of infection. 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 He verbalized understanding of these instructions. Patient is stable for discharge. Diagnosis Primary Impression: Transient hypotension Additional Impressions: Hyperkalemia Chronic kidney disease Qualified Code: N18.9 - Chronic kidney disease, unspecified CKD stage Referrals: Bernabe Johnson MD 2 days Primary Care Physician 2 days Patient Instructions: General Instructions Additional Instructions: Follow-up with her primary doctor Follow-up with your flatwork finisher Stop taking lisinopril Return to emergency department for any new or worsening symptoms Med/Other Pt SpecificInfo: Med Stopped (discontinue lisinopril) Disposition: 01 DISCHARGE HOME Condition: Stable Leila Boucher [facility] Nov 11, 2016 16:57
[2016-11-11 17:05] LABS: MAGNESIUM 1.7 MG/DL (1.5-2.5)
[2016-11-11 17:15] LABS: CREATINE KINASE 28 U/L (39-308)
[2016-11-11 17:30] VITALS: BP 171/77; PULSE 64; RESP 16; O2SAT 97
--- NOTE | 2016-11-11 17:39 | RADRPT ---
EXAM DATE/TIME: 11/11/2016 17:12 [facility] COMPARISON: CHEST SINGLE AP, November 03, 2016, 20:17. INDICATIONS : Chest pain. MEDICAL HISTORY : None. SURGICAL HISTORY : None. ENCOUNTER: Initial ACUITY: 1 day PAIN SCORE: 8/10 LOCATION: Bilateral chest FINDINGS: A single view of the chest demonstrates mild bibasilar atelectasis. Otherwise the rest of the lungs r emain clear and well-aerated.. The cardiomediastinal contours are unremarkable. Osseous structures a re intact. No other new or significant changes. CONCLUSION: Bibasilar atelectasis. Pankaj Gordon MD on November 11, 2016 at 17:36 Board Certified Radiologist. This report was verified electronically.
[2016-11-11 17:44] VITALS: O2SAT 99
[2016-11-11] MEDS ORDERED: SODIUM POLYSTYRENE SULFONATE SUSP 15 GM/60 ML CUP PO ONE ×2 (18:15→18:30)
[2016-11-11 18:21] LABS: APTT (PATIENT) 28.2 SEC (24.3-30.1); PROTHROMBIN TIME - PATIENT 10.6 SEC (9.8-11.6)
--- NOTE | 2016-11-11 18:55 | PD ---
Data Data Last Documented VS Vital Signs Date Time Temp Pulse Resp B/P Pulse Ox O2 Delivery O2 Flow Rate FiO2 11/11/16 17:44 99 Nasal Cannula 2 11/11/16 17:30 64 16 171/77 11/11/16 15:11 98.2 Orders Electrocardiogram (11/11/16 15:19) Complete Blood Count With Diff (11/11/16 15:19) Comprehensive Metabolic Panel (11/11/16 15:19) Iv Access Insert/Monitor (11/11/16 15:19) Urinalysis - C+S If Indicated (11/11/16 16:21) Blood Glucose (11/11/16 16:21) Ecg Monitoring (11/11/16 16:21) Oximetry (11/11/16 16:21) Oxygen Administration (11/11/16 16:21) Ckmb (Isoenzyme) Profile (11/11/16 15:25) Magnesium (Mg) (11/11/16 15:25) Troponin I (11/11/16 15:25) Chest, Single Ap (11/11/16 ) Act Partial Throm Time (Ptt) (11/11/16 16:57) Prothrombin Time / Inr (Pt) (11/11/16 16:57) Sodium Polysty Sulfate Liq (Kayexalate L (11/11/16 18:15) Sodium Polysty Sulfate Liq (Kayexalate L (11/11/16 18:30) Labs Laboratory Tests Test 11/11/16 11/11/16 15:25 17:35 White Blood Count 8.6 TH/MM3 Red Blood Count 3.15 MIL/MM3 Hemoglobin 8.6 GM/DL Hematocrit 26.6 % Mean Corpuscular Volume 84.3 FL Mean Corpuscular Hemoglobin 27.4 PG Mean Corpuscular Hemoglobin 32.6 % Concent Red Cell Distribution Width 14.7 % Platelet Count 83 TH/MM3 Mean Platelet Volume 10.9 FL Neutrophils (%) (Auto) 58.4 % Lymphocytes (%) (Auto) 21.5 % Monocytes (%) (Auto) 12.4 % Eosinophils (%) (Auto) 6.7 % Basophils (%) (Auto) 1.0 % Neutrophils # (Auto) 5.0 TH/MM3 Lymphocytes # (Auto) 1.8 TH/MM3 Monocytes # (Auto) 1.1 TH/MM3 Eosinophils # (Auto) 0.6 TH/MM3 Basophils # (Auto) 0.1 TH/MM3 CBC Comment AUTO DIFF Differential Comment AUTO DIFF CONFIRMED Sodium Level 137 MEQ/L Potassium Level 6.0 MEQ/L Chloride Level 107 MEQ/L Carbon Dioxide Level 22.8 MEQ/L Anion Gap 7 MEQ/L Blood Urea Nitrogen 45 MG/DL Creatinine 2.48 MG/DL Estimat Glomerular Filtration 25 ML/MIN Rate Random Glucose 191 MG/DL Calcium Level 8.2 MG/DL Magnesium Level 1.7 MG/DL Total Bilirubin 0.3 MG/DL Aspartate Amino Transf 9 U/L (AST/SGOT) Alanine Aminotransferase 13 U/L (ALT/SGPT) Alkaline Phosphatase 56 U/L Total Creatine Kinase 28 U/L Troponin I LESS THAN 0.02 NG/ML Total Protein 6.1 GM/DL Albumin 3.1 GM/DL Prothrombin Time 10.6 SEC Prothromb Time International 1.0 RATIO Ratio Activated Partial 28.2 SEC Thromboplast Time MDM Supervised Visit with YOLA: Yes Narrative Course The history, exam, and medical decision-making in the associated mid-level provider note were completed with my assistance. I reviewed and agree with the findings presented. I attest that I had a [id number] encounter with the patient on the same day, and personally performed and documented my assessment and findings in the medical record. *My assessment and Findings: Thin 80-year-old man, multiple medical conditions including most chronic kidney disease. Recent admission for chest pain that was unremarkable. 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 Workup here is unremarkable. He is on multiple blood pressure medications. No evidence of infection. He otherwise has been feeling generally well. We'll stop his lisinopril. His potassium is a little bit high. We spoke with Dr. Brady. We' ll give him some Kayexalate and have him follow-up closely with his regular doctors. Pablito Feliciano MD Nov 11, 2016 18:55
[2016-11-11 19:42] LABS: BLOOD, URINE NEG (NEG); GLUCOSE,URINE NEG (NEG); KETONE, URINE NEG (NEG); MUCUS URINE FEW /lpf (OCC); NITRITE,URINE NEG (NEG); SQUAMOUS EPITHELIAL CELL URINE <1 /hpf (0-5); URINE COLOR YELLOW (YELLW/STRAW)
[2016-11-11 19:58] LABS: COMMENT (UR) CATH-CULT NOT IND; CULTURE IF INDICATED CATH CULTURE NOT IND
--- NOTE | 2016-11-12 18:06 | EKG ---
Date Performed: 11/11/2016 Time Performed: 17:36:40 PTAGE: 80 years EKG: Sinus rhythm NORMAL ECG PREVIOUS TRACING : 11/04/2016 01.56 Compared to prior tracing no significant change DOCTOR: Julisa Mensah Interpretating Date/Time 11/12/2016 18:05:30
== END 2016-11-11 19:34 | disposition home or self-care (01) ==
LOC: NEPD 14:38
DX: I95.9 Hypotension, unspecified (principal); E87.5 Hyperkalemia; N18.9 Chronic kidney disease, unspecified; E11.22 Type 2 diabetes mellitus with diabetic chronic kidney disease; Z79.4 Long term (current) use of insulin
CPT/HCPCS: 71010; 80053; 81001; 82550; 83735; 84484; 85025; 85610; 85730; 93005

== ENCOUNTER 2017-01-07 15:50 | Emergency (ER) | payer MEDICARE, OTHER ==
[2017-01-07] MEDS ORDERED: NITROGLYCERIN 2% OINT 1 GM PACKET TOPICAL ONE (16:15)
--- NOTE | 2017-01-07 16:21 | PD ---
HPI Chief Complaint: shortness of breath Time Seen by Provider: 16:15 Travel History International Travel<30 days: No Contact w/Intl Traveler<30days: No Traveled to known affect area: No History of Present Illness HPI This 81-year-old male was in his usual health until about 1:00 this afternoon. He started having some crampy mid abdominal pain. He then had some lower sternal pain which radiated to his back. He started to feel short of breath at this point. He says he has not had trouble breathing before. He stopped smoking in 1999. He does see Dr. Carie cardoza and has a history of hypertension. He was recently taken off 2 of his blood pressure medicines. He is also being evaluated for anemia. he saw Dr. Horvath earlier this week. He says that he did get sweaty when he was having the chest pain. He sees Dr. 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 He had cardiac catheterization in 2006 which showed moderate disease and medical management was recommended. He does get occasional chest pain and he did take a nitroglycerin today. He had a laparoscopic cholecystectomy on October 07 of this year. He has had a cerebral shunt for about 2 years. Review of chart shows that the patient's hemoglobin runs about 9 his creatinine about 2.5 PFSH Past Medical History Hx Anticoagulant Therapy: Yes Anemia: Yes Arthritis: Yes Cancer: Yes (skin) Cardiac Catheterization: Yes Cardiovascular Problems: Yes (HTN) High Cholesterol: Yes Chest Pain: Yes Coronary Artery Disease: Yes Diabetes: Yes (TYPE 2) Diminished Hearing: Yes (SLIGHT HEARING DEFICIT) Endocrine: Yes Gastrointestinal Disorders: Yes Genitourinary: Yes Hypertension: Yes Implanted Vascular Access Dvce: Yes Kidney Stones: Yes Musculoskeletal: Yes Immunizations Current: Yes Renal Failure: Yes Seizures: No Sickle Cell Disease: Yes Sleep Apnea: Yes PNEUMOCCOCAL Vaccine (Year): 1 Past Surgical History Abdominal Surgery: Yes (BURST APPENDIX 1982) Appendectomy: Yes Body Medical Devices: implant in jaw Cardiac Surgery: Yes (HEART CATH 2007) Eye Surgery: Yes (CATARACTS AJAY EYES LENS IMPLANTS) Joint Replacement: Yes (TOTAL LT KNEE 2003) Neurologic Surgery: No Oral Surgery: Yes (JAW SURGERY WITH IMPLANT) Tonsillectomy: Yes Other Surgery: Yes (APPENDECTOMY, EYE SURGERY, JAW W/ IMPLANT,TONSILECTOMY, L KNEE REPLACEMENT.) Social History Alcohol Use: No Tobacco Use: No Substance Use: No Allergies-Medications (Allergen,Severity, Reaction): Coded Allergies: ciprofloxacin (Unverified Allergy, Unknown, was told he had a reaction to it, 01/07/17) Reported Meds & Prescriptions Reported Meds & Active Scripts Active Reported Lantus Inj (Insulin Glargine) 1,000 Unit/10 Ml Vial 40 Units SQ HS Humalog Inj (Insulin Human Lispro) 1,000 Unit/10 Ml Vial 2-12 Units SQ DIRECTED Max dose at bedtime:( )units; sugars < 70,(0)units; sugars 150-199,(2)units; sugars 200-249,(4)units; sugars 250-299,(7)units; sugars 300-349,(10)units; sugars more than 349,(12)units. Aspirin Low Dose (Aspirin) 81 Mg Chew 81 Mg CHEW DAILY Ferrous Sulfate DR (Ferrous Sulfate) 324 Mg Tabdr 324 Mg PO DAILY Vytorin (Ezetimibe-Simvastatin) 10-40 Mg Tab 1 Tab PO HS D3 Super Strength (Cholecalciferol) 2,000 Unit Cap 2,000 Units PO DAILY Travatan Z Opth Drops (Travoprost) 0.004 % Soln 1 Drop EACH EYE BID Alphagan P Opth Drops (Brimonidine Tartrate) 0.1% Soln 1 Drop EACH EYE BID Amlodipine (Amlodipine Besylate) 5 Mg Tab 5 Mg PO HS Sertraline (Sertraline HCl) 100 Mg Tab 100 Mg PO DAILY Cilostazol 50 Mg Tab 50 Mg PO BID Isosorbide Mononitrate ER (Isosorbide Mononitrate) 60 Mg Tab 60 Mg PO DAILY Carvedilol 12.5 Mg Tab 12.5 Mg PO BID Review of Systems General / Constitutional: No: Fever, Chills Eyes: No: Diploplia, Blurred Vision HENT: No: Headaches, Vertigo Cardiovascular: Positive: Chest Pain or Discomfort Respiratory: Positive: Shortness of Breath, No: Cough Gastrointestinal: Positive: Abdominal Pain, No: Nausea, Vomiting Genitourinary: No: Frequency, Dysuria Musculoskeletal: No: Myalgias, Arthralgias Skin: No Rash, No Itching Neurologic: Positive: Weakness, No: Focal Abnormalities Hematologic/Lymphatic: No: Easy Bruising Physical Exam Narrative GENERAL: Patient arrives in moderate distress with respiratory distress. His O2 saturation is 88% blood pressure is initially 207/95 SKIN: Focused skin assessment warm/dry. HEAD: Atraumatic. Normocephalic. EYES: Pupils equal and round. No scleral icterus. Sclera aren't pale. ENT: No nasal bleeding or discharge. Mucous membranes pink and moist. NECK: Trachea midline. No JVD. CARDIOVASCULAR: Regular rate and rhythm. No murmur appreciated. RESPIRATORY: accessory muscle use. There are bibasilar rales. Breath sounds equal bilaterally. GASTROINTESTINAL: Abdomen soft, non-tender, nondistended. Hepatic and splenic margins not palpable. MUSCULOSKELETAL: No obvious deformities. No clubbing. No cyanosis. No edema. NEUROLOGICAL: Awake and alert. No obvious cranial nerve deficits. Motor grossly within normal limits. Normal speech. PSYCHIATRIC: Appropriate mood and affect; insight and judgment normal. Data Data Last Documented VS Vital Signs Date Time Temp Pulse Resp B/P (MAP) Pulse Ox O2 Delivery O2 Flow Rate FiO2 01/07/17 17:45 72 18 190/77 (114) 94 Room Air 01/07/17 16:56 98.2 Orders Orders Complete Blood Count With Diff (01/07/17 16:15) Comprehensive Metabolic Panel (01/07/17 16:15) Troponin I (01/07/17 16:15) B-Type Natriuretic Peptide (01/07/17 16:15) Prothrombin Time / Inr (Pt) (01/07/17 16:15) Act Partial Throm Time (Ptt) (01/07/17 16:15) Lipase (01/07/17 16:15) Urinalysis - C+S If Indicated (01/07/17 16:15) Chest, Single Ap (01/07/17 16:15) Nitroglycerin 2% Oint (Nitroglycerin 2% (01/07/17 16:15) Electrocardiogram (01/07/17 16:15) Insulin Human Regular Inj (Novolin R Inj (01/07/17 17:15) Beta Hydroxybutyrate (Acetone) (01/07/17 16:05) Labs Laboratory Tests Test 01/07/17 16:05 White Blood Count 12.5 TH/MM3 Red Blood Count 3.80 MIL/MM3 Hemoglobin 10.4 GM/DL Hematocrit 32.3 % Mean Corpuscular Volume 85.1 FL Mean Corpuscular Hemoglobin 27.3 PG Mean Corpuscular Hemoglobin Concent 32.1 % Red Cell Distribution Width 13.9 % Platelet Count 49 TH/MM3 Mean Platelet Volume 10.0 FL Neutrophils (%) (Auto) 67.6 % Lymphocytes (%) (Auto) 16.8 % Monocytes (%) (Auto) 14.6 % Eosinophils (%) (Auto) 0.9 % Basophils (%) (Auto) 0.1 % Neutrophils # (Auto) 8.5 TH/MM3 Lymphocytes # (Auto) 2.1 TH/MM3 Monocytes # (Auto) 1.8 TH/MM3 Eosinophils # (Auto) 0.1 TH/MM3 Basophils # (Auto) 0.0 TH/MM3 CBC Comment AUTO DIFF Differential Comment AUTO DIFF CONFIRMED Platelet Estimate LOW Platelet Morphology Comment ENLARGED Prothrombin Time 10.4 SEC Prothromb Time International Ratio 0.9 RATIO Activated Partial Thromboplast Time 21.7 SEC Blood Urea Nitrogen 39 MG/DL Creatinine 2.40 MG/DL Random Glucose 452 MG/DL Total Protein 7.0 GM/DL Albumin 3.5 GM/DL Calcium Level 8.5 MG/DL Alkaline Phosphatase 78 U/L Aspartate Amino Transf (AST/SGOT) 5 U/L Alanine Aminotransferase (ALT/SGPT) 16 U/L Total Bilirubin 0.3 MG/DL Sodium Level 134 MEQ/L Potassium Level 4.7 MEQ/L Chloride Level 100 MEQ/L Carbon Dioxide Level 27.3 MEQ/L Anion Gap 7 MEQ/L Estimat Glomerular Filtration Rate 26 ML/MIN Troponin I LESS THAN 0.02 NG/ML B-Type Natriuretic Peptide 92 PG/ML Lipase 103 U/L B-Hydroxybutyrate 0.11 MMOL/L [facility] Medical Decision Making Medical Screen Exam Complete: Yes Emergency Medical Condition: Yes Medical Record Reviewed: Yes Differential Diagnosis Differential includes pneumonia, CHF, acute coronary syndrome, Narrative Course Chest x-ray is read as showing no acute disease. EKG shows normal sinus rhythm. His blood pressure initially was elevated he was given half inch of Nitropaste with improvement in his pressure. With supplemental oxygen his saturations are 95%. Troponin is normal. His hemoglobin today is 10.4 which is higher than normal for him. His blood glucose is 452. bUN is 39 with creatinine of 2.4. This is similar to his baseline. During her period of observation the patient felt well. I was planning to admit him for further evaluation or bruits quite insistent on going home. He has an appointment with Dr. Horvath tomorrow wants to go to that. His troponin is negative. He appears stable and will be released Diagnosis Primary Impression: Uncontrolled diabetes mellitus Additional Impression: Chest pain Qualified Codes: R07.9 - Chest pain, unspecified Disposition: 01 DISCHARGE HOME Condition: Stable Shahid Flores MD Jan 07, 2017 16:21
[2017-01-07 16:54] LABS: CHLORIDE 100 MEQ/L (98-107); POTASSIUM 4.7 MEQ/L (3.5-5.1); SODIUM (NA) 134 MEQ/L (136-145)
--- NOTE | 2017-01-07 16:54 | RADRPT ---
EXAM DATE/TIME: 01/07/2017 16:23 [facility] COMPARISON: CHEST SINGLE AP, November 11, 2016, 17:12. INDICATIONS : Shortness of breath today. MEDICAL HISTORY : Hypertension. Diabetes mellitus type II. Sickle cell. Skin cancer. SURGICAL HISTORY : Heart cath. ENCOUNTER: Initial ACUITY: 1 day PAIN SCORE: 0/10 LOCATION: Bilateral chest FINDINGS: A single view of the chest demonstrates the lungs to be symmetrically aerated without evidence of mas s, infiltrate or effusion. There is stable mild scarring at the lung bases. Shunt catheter tubing is projected over the right side of the chest. There are mild atherosclerotic changes in aorta. The car diomediastinal contours are unremarkable. Osseous structures are intact. CONCLUSION: No acute disease. Viktor Diehl MD on January 07, 2017 at 16:52 Board Certified Radiologist. This report was verified electronically.
[2017-01-07 16:55] LABS: AUTOMATED NEUTROPHIL # 8.5 TH/MM3 (1.8-7.7); BASOPHIL % 0.1 % (0.0-2.0); EOSINOPHIL # 0.1 TH/MM3 (0-0.4); EOSINOPHIL % 0.9 % (0.0-4.0); HEMATOCRIT 32.3 % (39.0-51.0); LYMPH % 16.8 % (9.0-44.0); LYMPHOCYTE # 2.1 TH/MM3 (1.0-4.8); MEAN CELL VOLUME 85.1 FL (80.0-100.0); MEAN CORPUSCULAR HEMOGLOBIN 27.3 PG (27.0-34.0); MEAN CORPUSCULAR HGB CONC 32.1 % (32.0-36.0); MONO % 14.6 % (0.0-8.0); NEUT % 67.6 % (16.0-70.0); PLATELET COUNT 49 TH/MM3 (150-450); RED CELL DISTRIBUTION WIDTH 13.9 % (11.6-17.2); WHITE BLOOD COUNT 12.5 TH/MM3 (4.0-11.0)
[2017-01-07 16:56] VITALS: BP 207/95; PULSE 88; RESP 22; TEMP 98.2; O2SAT 89
[2017-01-07 16:58] LABS: ANION GAP 7 MEQ/L (5-15); BICARBONATE 27.3 MEQ/L (21.0-32.0)
[2017-01-07 17:00] LABS: APTT (PATIENT) 21.7 SEC (24.3-30.1); INTERNATIONAL NORMALIZED RATIO 0.9 RATIO; PROTHROMBIN TIME - PATIENT 10.4 SEC (9.8-11.6)
[2017-01-07 17:04] LABS: HEMO FLAGS AUTO DIFF
[2017-01-07 17:11] LABS: ALKALINE PHOSPHATASE 78 U/L (45-117); ALT (GPT) 16 U/L (12-78); AST (GOT) 5 U/L (15-37); BLOOD UREA NITROGEN 39 MG/DL (7-18); GLOMERULAR FILTRATION RATE 26 ML/MIN (>89); TOTAL BILIRUBIN ADULT 0.3 MG/DL (0.2-1.0)
[2017-01-07] MEDS ORDERED: INSULIN HUMAN REGULAR 1,000 UNITS/10 ML VIAL SQ ONE (17:15)
[2017-01-07] MEDS ORDERED: HUMALOG SQ (17:19)
[2017-01-07] MEDS ORDERED: ASPI81CH37 CHEW (17:19)
[2017-01-07] MEDS ORDERED: LANTUS2P SQ (17:19)
[2017-01-07 17:29] LABS: PLATELET ESTIMATE SMEAR LOW (NORMAL); PLATELET MORPHOLOGY ENLARGED (NORMAL); SCAN/DIFF AUTO DIFF CONFIRMED
[2017-01-07 17:40] LABS: BETA-HYDROXYBUTYRATE 0.11 MMOL/L (0.00-0.39)
[2017-01-07 17:45] VITALS: BP 190/77; PULSE 72; RESP 18; O2SAT 94
--- NOTE | 2017-01-09 01:12 | EKG ---
Date Performed: 01/07/2017 Time Performed: 16:06:16 PTAGE: 81 years EKG: Sinus rhythm NORMAL ECG PREVIOUS TRACING : 11/11/2016 17.36 Compared to prior tracing no significant change DOCTOR: Alton Vasquez Interpretating Date/Time 01/09/2017 01:10:59
== END 2017-01-07 18:29 | disposition home or self-care (01) ==
LOC: PHED 15:50
DX: E11.65 Type 2 diabetes mellitus with hyperglycemia (principal); R07.9 Chest pain, unspecified; H91.90 Unspecified hearing loss, unspecified ear; I10 Essential (primary) hypertension; I25.10 Atherosclerotic heart disease of native coronary artery without angina pectoris; Z85.828 Personal history of other malignant neoplasm of skin; Z95.5 Presence of coronary angioplasty implant and graft; Z90.49 Acquired absence of other specified parts of digestive tract
CPT/HCPCS: 71010; 80053; 82010; 83690; 83880; 84484; 85025; 85610; 85730; 93005; 96372; 99285; J1815